=== PATIENT | female | born 1970 | race Caucasian/White ===

== ENCOUNTER 2017-11-26 13:43 | Inpatient (IN) | payer SELFPAY ==
[2017-11-26] VITALS (8 sets, daily range): BP systolic 145–182; BP diastolic 82–114; PULSE 62–80; RESP 16–21; TEMP 97.4–98.9; O2SAT 93–97
[~2017-11-26] VITALS: Ht 154.9 cm; Wt 91.2 kg
--- NOTE | 2017-11-26 14:21 | PD ---
HPI Chief Complaint: Respiratory Symptoms Time Seen by Provider: 14:06 Travel History International Travel<30 days: No Contact w/Intl Traveler<30days: No Traveled to known affect area: No History of Present Illness HPI The patient is a 47-year-old female who presents to the emergency department for bilateral lower extremity edema of 2 weeks' duration. The patient states she's had swelling of both lower extremities over the last 2 weeks. She now complains of increasing shortness of breath is worse with exertion, also complains of mild low back pain. The patient denies any recent travel, hospitalizations, surgeries, or previous history of pulmonary embolism/ DVT. Patient denies any history congestive heart failure or COPD. The patient does have a history tobacco use, last use a cigarette one hour prior to arrival. She also admits to drinking approximately 3 beers per day. She denies any known history of liver problems secondary to alcohol use. The patient denies any chest pain, nausea, vomiting, abdominal pain, or abdominal distention. The patient does not have a local primary physician. Symptoms are moderate without any alleviating or exacerbating factors. [facility] Past Medical History Medical History: Denies Significant Hx Diminished Hearing: No Tetanus Vaccination: Unknown Influenza Vaccination: No ?: Not LMP: 11/12/17 Past Surgical History Surgical History: No Previous Surgery Social History Alcohol Use: Yes (few times a week) Tobacco Use: Yes (1 ppd) Substance Use: Yes (marjuania) Allergies-Medications (Allergen,Severity, Reaction): Coded Allergies: No Known Allergies (Verified Allergy, Unknown, 11/26/17) Reported Meds & Prescriptions Reported Meds & Active Scripts Active No Active Prescriptions or Reported Medications Review of Systems Except as stated in HPI: all other systems reviewed are Neg General / Constitutional: No: Fever Cardiovascular: Positive: Dyspnea on exertion, No: Chest Pain or Discomfort Respiratory: Positive: Shortness of Breath, No: Cough, Wheezing Genitourinary: No: Decreased Urinary Output Musculoskeletal: Positive: Edema, Pain Physical Exam Narrative GENERAL: Awake, alert, 47-year-old female who appears her stated age and is in no acute respiratory distress. SKIN: Focused skin assessment warm/dry. HEAD: Atraumatic. Normocephalic. EYES: Pupils equal and round. No scleral icterus. No injection or drainage. ENT: No nasal bleeding or discharge. Mucous membranes pink and moist. NECK: Trachea midline. No JVD. CARDIOVASCULAR: Regular rate and rhythm. No murmur appreciated. RESPIRATORY: No accessory muscle use. Slightly diminished breath sounds in the bases. GASTROINTESTINAL: Abdomen soft, obese with reducible umbilical hernia. MUSCULOSKELETAL: No obvious deformities. No clubbing. No cyanosis. Bilateral lower extremity pitting edema from the knees inferiorly. Some ecchymosis noted over the proximal first, second, third, fourth digit of the left foot. Tenderness noted over both lower extremity edematous legs. NEUROLOGICAL: Awake and alert. No obvious cranial nerve deficits. Motor grossly within normal limits. Normal speech. PSYCHIATRIC: Appropriate mood and affect; insight and judgment normal. Data Data Last Documented VS Vital Signs Date Time Temp Pulse Resp B/P (MAP) Pulse Ox O2 Delivery O2 Flow Rate FiO2 11/26/17 14:43 77 20 172/98 (122) 93 Room Air 11/26/17 13:48 98.9 Orders Orders Complete Blood Count With Diff (11/26/17 14:17) Comprehensive Metabolic Panel (11/26/17 14:17) B-Type Natriuretic Peptide (11/26/17 14:17) Magnesium (Mg) (11/26/17 14:17) Ckmb (Isoenzyme) Profile (11/26/17 14:17) Troponin I (11/26/17 14:17) Iv Access Insert/Monitor (11/26/17 14:17) Electrocardiogram (11/26/17 14:17) Ecg Monitoring (11/26/17 14:17) Oximetry (11/26/17 14:17) Oxygen Administration (11/26/17 14:17) Chest, Single Ap (11/26/17 14:17) Sodium Chloride 0.9% Flush (Ns Flush) (11/26/17 14:30) Furosemide Inj (Lasix Inj) (11/26/17 14:30) Foot, Limited (2vws) (11/26/17 ) CKMB (11/26/17 14:14) CKMB% (11/26/17 14:14) Aspirin Chew (Aspirin Chew) (11/26/17 15:15) Consult Cardiology (11/26/17 ) Admit Order (Ed Use Only) (11/26/17 15:47) Labs Laboratory Tests Test 11/26/17 14:14 White Blood Count 16.1 TH/MM3 Red Blood Count 4.03 MIL/MM3 Hemoglobin 13.2 GM/DL Hematocrit 39.0 % Mean Corpuscular Volume 96.8 FL Mean Corpuscular Hemoglobin 32.9 PG Mean Corpuscular Hemoglobin Concent 34.0 % Red Cell Distribution Width 14.4 % Platelet Count 289 TH/MM3 Mean Platelet Volume 8.4 FL Neutrophils (%) (Auto) 77.4 % Lymphocytes (%) (Auto) 14.6 % Monocytes (%) (Auto) 5.2 % Eosinophils (%) (Auto) 2.4 % Basophils (%) (Auto) 0.4 % Neutrophils # (Auto) 12.4 TH/MM3 Lymphocytes # (Auto) 2.4 TH/MM3 Monocytes # (Auto) 0.8 TH/MM3 Eosinophils # (Auto) 0.4 TH/MM3 Basophils # (Auto) 0.1 TH/MM3 CBC Comment DIFF FINAL Differential Comment Blood Urea Nitrogen 16 MG/DL Creatinine 0.87 MG/DL Random Glucose 108 MG/DL Total Protein 7.5 GM/DL Albumin 3.7 GM/DL Calcium Level 8.6 MG/DL Magnesium Level 2.3 MG/DL Alkaline Phosphatase 99 U/L Aspartate Amino Transf (AST/SGOT) 22 U/L Alanine Aminotransferase (ALT/SGPT) 20 U/L Total Bilirubin 0.4 MG/DL Sodium Level 139 MEQ/L Potassium Level 4.0 MEQ/L Chloride Level 103 MEQ/L Carbon Dioxide Level 28.6 MEQ/L Anion Gap 7 MEQ/L Estimat Glomerular Filtration Rate 69 ML/MIN Total Creatine Kinase 140 U/L Creatine Kinase MB 2.2 NG/ML Troponin I 0.11 NG/ML B-Type Natriuretic Peptide 9 PG/ML MDM Medical Decision Making Medical Screen Exam Complete: Yes Emergency Medical Condition: Yes Medical Record Reviewed: Yes Interpretation(s) EKG reveals normal sinus rhythm with a rate of 73. Inverted T waves noted in lead V4, V5, V6, 1, aVL, and lead 2. Laboratory Tests Test 11/26/17 14:14 White Blood Count 16.1 TH/MM3 Red Blood Count 4.03 MIL/MM3 Hemoglobin 13.2 GM/DL Hematocrit 39.0 % Mean Corpuscular Volume 96.8 FL Mean Corpuscular Hemoglobin 32.9 PG Mean Corpuscular Hemoglobin Concent 34.0 % Red Cell Distribution Width 14.4 % Platelet Count 289 TH/MM3 Mean Platelet Volume 8.4 FL Neutrophils (%) (Auto) 77.4 % Lymphocytes (%) (Auto) 14.6 % Monocytes (%) (Auto) 5.2 % Eosinophils (%) (Auto) 2.4 % Basophils (%) (Auto) 0.4 % Neutrophils # (Auto) 12.4 TH/MM3 Lymphocytes # (Auto) 2.4 TH/MM3 Monocytes # (Auto) 0.8 TH/MM3 Eosinophils # (Auto) 0.4 TH/MM3 Basophils # (Auto) 0.1 TH/MM3 CBC Comment DIFF FINAL Differential Comment Blood Urea Nitrogen 16 MG/DL Creatinine 0.87 MG/DL Random Glucose 108 MG/DL Total Protein 7.5 GM/DL Albumin 3.7 GM/DL Calcium Level 8.6 MG/DL Magnesium Level 2.3 MG/DL Alkaline Phosphatase 99 U/L Aspartate Amino Transf (AST/SGOT) 22 U/L Alanine Aminotransferase (ALT/SGPT) 20 U/L Total Bilirubin 0.4 MG/DL Sodium Level 139 MEQ/L Potassium Level 4.0 MEQ/L Chloride Level 103 MEQ/L Carbon Dioxide Level 28.6 MEQ/L Anion Gap 7 MEQ/L Estimat Glomerular Filtration Rate 69 ML/MIN Total Creatine Kinase 140 U/L Creatine Kinase MB 2.2 NG/ML Troponin I 0.11 NG/ML Last Impressions Chest X-Ray 11/26/17 1417 Signed Impressions: Service Date/Time: Sunday, November 26, 2017 15:02 - CONCLUSION: Mild linear bibasilar atelectasis. Nancy Pickens MD Foot X-Ray 11/26/17 0000 Signed Impressions: Service Date/Time: Sunday, November 26, 2017 15:04 - CONCLUSION: Soft tissue swelling and no definite fracture for technique. Nancy Pickens MD Differential Diagnosis Differential diagnosis includes congestive heart failure, volume overload, pulmonary edema, alcoholic liver cirrhosis, hyponatremia, hypoalbuminemia, deconditioning, pulmonary embolism, ACS, pneumonia, pleural effusion. Narrative Course IV was established, labs are drawn and sent, and the patient was placed on cardiac telemetry monitoring and continuous pulse oximetry monitoring. EKG was ordered and interpreted. Chest x-ray was obtained. The patient was administered Lasix 40 mg intravenously. The patient was also administered aspirin 162 mg orally. The patient's troponin is elevated at 0.11, creatinine is normal. EKG does reveal inverted T waves in the lateral and inferior leads, may be secondary to chronic hypertension versus ischemic changes. The patient does have exertional dyspnea, may be anginal equivalent versus cardiomyopathy. BNP was 9. Patient will require admission, probable echocardiogram, and possibly consultation with cardiology to evaluate for possible cardiac catheterization versus stress test. I did have a discussion with the patient, who agrees and understands the plan of care. I also placed a call to the on-call kennel aide in regards to patient's elevated troponin with EKG changes and negative BNP. I discussed the patient with Dr. Gordillo at 3:34 PM who states the patient should be transferred to [facility] as she will need to see cardiology for further evaluation and treatment. A call was placed to [facility], patient will be transferred not emergently to [facility] cardiac telemetry. Physician Communication Physician Communication The on-call medical service was paged for admission. The on-call kennel aide for the emergency department was paged. I discussed the patient with Dr. Bautista who agrees with admission. Diagnosis Primary Impression: NSTEMI (non-ST elevated myocardial infarction) Additional Impressions: Dyspnea Qualified Codes: R06.02 - Shortness of breath Edema Qualified Codes: R60.9 - Edema, unspecified Admitting Information Admitting Physician Requests: Admit Scripts No Active Prescriptions or Reported Meds Condition: Stable Natalio Reagan MD Nov 26, 2017 14:21
[2017-11-26 14:27] LABS: AUTOMATED NEUTROPHIL # 12.4 TH/MM3 (1.8-7.7); BASOPHIL # 0.1 TH/MM3 (0-0.2); BASOPHIL % 0.4 % (0.0-2.0); EOSINOPHIL # 0.4 TH/MM3 (0-0.4); EOSINOPHIL % 2.4 % (0.0-4.0); HEMOGLOBIN 13.2 GM/DL (11.6-15.3); LYMPH % 14.6 % (9.0-44.0); LYMPHOCYTE # 2.4 TH/MM3 (1.0-4.8); MEAN CELL VOLUME 96.8 FL (80.0-100.0); MEAN CORPUSCULAR HEMOGLOBIN 32.9 PG (27.0-34.0); MEAN PLATELET VOLUME 8.4 FL (7.0-11.0); MONO % 5.2 % (0.0-8.0); MONOCYTE # 0.8 TH/MM3 (0-0.9); NEUT % 77.4 % (16.0-70.0); PLATELET COUNT 289 TH/MM3 (150-450); RED BLOOD COUNT 4.03 MIL/MM3 (4.00-5.30); RED CELL DISTRIBUTION WIDTH 14.4 % (11.6-17.2); WHITE BLOOD COUNT 16.1 TH/MM3 (4.0-11.0)
[2017-11-26] MEDS ORDERED: SODIUM CHLORIDE 0.9% FLUSH 10 ML FLUSH IVF PRN (14:30)
[2017-11-26] MEDS ORDERED: FUROSEMIDE 40 MG/4 ML VIAL IVP ONE (14:30)
[2017-11-26 14:45] LABS: CHLORIDE 103 MEQ/L (98-107); SODIUM (NA) 139 MEQ/L (136-145)
[2017-11-26 14:49] LABS: ALBUMIN 3.7 GM/DL (3.4-5.0); BICARBONATE 28.6 MEQ/L (21.0-32.0); BLOOD UREA NITROGEN 16 MG/DL (7-18); CALCIUM 8.6 MG/DL (8.5-10.1); GLUCOSE,RANDOM 108 MG/DL (74-106); MAGNESIUM 2.3 MG/DL (1.5-2.5)
[2017-11-26 14:52] LABS: ALT (GPT) 20 U/L (10-53); AST (GOT) 22 U/L (15-37); CREATININE 0.87 MG/DL (0.50-1.00); GLOMERULAR FILTRATION RATE 69 ML/MIN (>89)
[2017-11-26 14:54] LABS: TOTAL BILIRUBIN ADULT 0.4 MG/DL (0.2-1.0); TOTAL PROTEIN 7.5 GM/DL (6.4-8.2)
[2017-11-26 14:55] LABS: ALKALINE PHOSPHATASE 99 U/L (45-117)
[2017-11-26 14:58] LABS: TROPONIN I 0.11 NG/ML (0.02-0.05)
[2017-11-26] MEDS ORDERED: ASPIRIN 81 MG CHEW TAB CHEW ONE (15:15)
--- NOTE | 2017-11-26 15:29 | RADRPT ---
EXAM DATE/TIME: 11/26/2017 15:02 [facility] COMPARISON: No previous studies available for comparison. INDICATIONS : Short of breath, upper and lower extremity swelling MEDICAL HISTORY : None. SURGICAL HISTORY : None. ENCOUNTER: Initial ACUITY: 1 day PAIN SCORE: 0/10 LOCATION: Bilateral chest FINDINGS: The lungs are clear without infiltrate, nodule, or mass except for mild linear bibasilar atelectasis. There is no appreciable pleural effusion for technique. Heart and mediastinum are unremarkable. CONCLUSION: Mild linear bibasilar atelectasis. Nancy Pickens MD on November 26, 2017 at 15:26 Board Certified Radiologist. This report was verified electronically.
--- NOTE | 2017-11-26 15:30 | RADRPT ---
EXAM DATE/TIME: 11/26/2017 15:04 [facility] COMPARISON: No previous studies available for comparison. INDICATIONS : Fell several days ago, has left foot swelling and pain MEDICAL HISTORY : None. SURGICAL HISTORY : None. ENCOUNTER: Initial ACUITY: 4 - 6 days PAIN SCORE: 6/10 LOCATION: Left foot FINDINGS: No definite fractures, or dislocations are identified. No definite lytic or sclerotic lesion is seen . Soft tissue swelling is identified. CONCLUSION: Soft tissue swelling and no definite fracture for mayuri. KAilin Pickens MD on November 26, 2017 at 15:27 Board Certified Radiologist. This report was verified electronically.
[2017-11-26] MEDS ORDERED: ONDANSETRON HCL 4 MG/2 ML VIAL IVP PRN (16:45)
[2017-11-26] MEDS ORDERED: MAGNESIUM HYDROXIDE SUSP 30 ML CUP PO PRN (16:45)
[2017-11-26] MEDS ORDERED: LACTULOSE SYRUP 20 GM/30 ML CUP PO PRN (16:45)
[2017-11-26] MEDS ORDERED: BISACODYL 10 MG SUPP RECTAL PRN (16:45)
[2017-11-26] MEDS ORDERED: ACETAMINOPHEN 325 MG TAB PO PRN (16:45)
[2017-11-26] MEDS ORDERED: NALOXONE HCL 0.4 MG/ML AMP IV PUSH PRN (16:45)
[2017-11-26] MEDS ORDERED: TEMAZEPAM 15 MG CAP PO PRN (16:45)
[2017-11-26] MEDS ORDERED: SODIUM CHLORIDE 0.9% FLUSH 10 ML FLUSH IV FLUSH PRN (16:45)
[2017-11-26] MEDS ORDERED: SENNOSIDES 8.6 MG TAB PO PRN (16:45)
--- NOTE | 2017-11-26 19:29 | EKG ---
Date Performed: 11/26/2017 Time Performed: 19:03:51 PTAGE: 47 years EKG: Sinus rhythm WITH SINUS ARRHYTHMIA Nonspecific ST and T wave abnormalities ABNORMAL ECG No significant change fro m prior electrocardiogram. PREVIOUS TRACING : 11/26/2017 14.23 DOCTOR: Aayush Landaverde Interpretating Date/Time 11/26/2017 19:28:07
[2017-11-26] MEDS ORDERED: ACETAMINOPHEN/HYDROcodone 325 MG/5 MG TAB PO PRN (19:45)
[2017-11-26] MEDS: LORazepam 1 MG TAB PO PRN (21:48)
[2017-11-26] MEDS: DOCUSATE SODIUM 50 MG/SENNA 8.6 MG TAB PO SCH (21:48)
[2017-11-26] MEDS: SODIUM CHLORIDE 0.9% FLUSH 10 ML FLUSH IV FLUSH SCH (21:49)
[2017-11-26] MEDS: METOPROLOL TARTRATE 25 MG TAB PO SCH (21:49)
--- NOTE | 2017-11-26 22:09 | EKG ---
Date Performed: 11/26/2017 Time Performed: 14:23:45 PTAGE: 47 years EKG: Baseline artifact present Sinus rhythm Nonspecific T wave changes ABNORMAL ECG NO PREVIOUS TRACING DOCTOR: Aayush Landaverde Interpretating Date/Time 11/26/2017 22:07:16
--- NOTE | 2017-11-26 22:31 | EKG ---
Date Performed: 11/26/2017 Time Performed: 22:04:50 PTAGE: 47 years EKG: Baseline artifact present Sinus rhythm Nonspecific T wave changes ABNORMAL ECG No significant change from prior electrocardiogram. PREVIOUS TRACING : 11/26/2017 19.03 DOCTOR: Aayush Landaverde Interpretating Date/Time 11/26/2017 22:29:38
[2017-11-27] VITALS (10 sets, daily range): BP systolic 134–166; BP diastolic 88–116; PULSE 42–90; RESP 18–22; TEMP 98.1–99; O2SAT 93–97
[2017-11-27 06:15] LABS: AUTOMATED NEUTROPHIL # 17.7 TH/MM3 (1.8-7.7); BASOPHIL # 0.1 TH/MM3 (0-0.2); BASOPHIL % 0.4 % (0.0-2.0); EOSINOPHIL # 0.4 TH/MM3 (0-0.4); HEMATOCRIT 42.9 % (35.0-46.0); HEMOGLOBIN 14.7 GM/DL (11.6-15.3); LYMPH % 10.7 % (9.0-44.0); LYMPHOCYTE # 2.3 TH/MM3 (1.0-4.8); MEAN CORPUSCULAR HEMOGLOBIN 33.8 PG (27.0-34.0); MEAN CORPUSCULAR HGB CONC 34.1 % (32.0-36.0); MEAN PLATELET VOLUME 8.9 FL (7.0-11.0); MONO % 4.9 % (0.0-8.0); MONOCYTE # 1.1 TH/MM3 (0-0.9); PLATELET COUNT 326 TH/MM3 (150-450); RED BLOOD COUNT 4.34 MIL/MM3 (4.00-5.30); RED CELL DISTRIBUTION WIDTH 15.4 % (11.6-17.2); WHITE BLOOD COUNT 21.6 TH/MM3 (4.0-11.0)
[2017-11-27 06:39] LABS: BICARBONATE 27.9 MEQ/L (21.0-32.0); CALCIUM 9.1 MG/DL (8.5-10.1); CREATININE 0.93 MG/DL (0.50-1.00)
[2017-11-27 06:44] LABS: TROPONIN I 0.11 NG/ML (0.02-0.05)
[2017-11-27] MEDS: SODIUM CHLORIDE 0.9% FLUSH 10 ML FLUSH IV FLUSH SCH ×2 (09:04→21:59)
[2017-11-27] MEDS: PRAVASTATIN SOD 40 MG TAB PO SCH (09:06)
[2017-11-27] MEDS: ASPIRIN EC 81 MG TABEC PO SCH (09:06)
[2017-11-27] MEDS: METOPROLOL TARTRATE 25 MG TAB PO SCH ×2 (09:07→21:59)
[2017-11-27] MEDS: DOCUSATE SODIUM 50 MG/SENNA 8.6 MG TAB PO SCH ×2 (09:07→21:00)
[2017-11-27] MEDS: amLODIPine BESYLATE 5 MG TAB PO SCH (11:52)
--- NOTE | 2017-11-27 12:06 | MB ---
cc: SATHISH VERDE DO DATE OF CONSULTATION 11/27/2017 REASON FOR CONSULTATION Shortness of breath with exertion. HISTORY OF PRESENT ILLNESS Ciera Reeder is a pleasant 47-year-old female who presented to [facility] emergency room [place] due to bilateral lower extremity swelling as well as shortness of breath. She states that this was increasing over the past few weeks and has gotten significantly worse over the past week. She states that she also has had dyspnea on exertion which has been progressive over the past few months. At this time, she is unable to walk more than 10 minutes without getting short of breath. She has no complaints of orthopnea or paroxysmal nocturnal dyspnea. She does a have a weird feeling in her chest occasionally which lasts a few minutes and goes away. It does not seem to be related to activity. In seeing her, she is currently without chest pain or shortness of breath and hemodynamically stable. PAST MEDICAL HISTORY Denies significant history but has not seen a doctor in a number of years. She states that she previously had: 1. Hyperthyroidism but this was treated with radiation. 2. She most likely has longstanding hypertension based on her current blood pressures here as well as EKG changes. PAST SURGICAL HISTORY Denies ALLERGIES NO KNOWN DRUG ALLERGIES. MEDICATIONS Denies FAMILY HISTORY Denies premature coronary artery disease or sudden cardiac within the family. SOCIAL HISTORY The patient states that she will drink three beers a day a few days a week. She smokes one-pack per day of cigarettes. She also admits to smoking marijuana, but no other substance abuse. REVIEW OF SYSTEMS 14-systems were reviewed including osteopathic. Pertinent positives and negatives as above otherwise negative. PHYSICAL EXAMINATION VITAL SIGNS: Temperature 98.4, heart rate 68, blood pressure 164/98, respirations 20, pulse ox 93% on two liters. GENERAL: The patient appears well in no acute distress, alert awake and oriented x3. Extraocular muscles intact. Mucous membranes moist. NECK: Supple. No JVD at 45 degrees. No carotid bruits heard bilaterally. Carotid upstroke is brisk in nature. HEART: Regular rate and rhythm. Positive first and second heart sounds with no murmurs, gallops or rubs. LUNGS: Clear to auscultation bilaterally. No wheezes, rales or rhonchi. ABDOMEN: Soft, obese, nontender, nondistended. No organomegaly noted. EXTREMITIES: Show 1+ nonpitting edema bilaterally. No clubbing or cyanosis. Femoral and distal pulses intact bilaterally. NEUROLOGIC: No focal deficits. SKIN: Warm, dry and intact. OSTEOPATHIC: Mild lordosis. No kyphoscoliosis or paraspinal tender points. LABORATORY FINDINGS Hemoglobin 14.7, hematocrit 42.9, platelets 326. Potassium 3.4, BUN 16, creatinine 0.93, troponin 0.11. BNP 9. Electrocardiogram (November 26, 2017 at 2204) sinus rhythm, ST-T wave changes laterally possibly due to ischemia. IMPRESSION 1. Dyspnea on exertion. 2. Lower extremity edema. 3. Accelerated hypertensive/hypertensive urgency with blood pressures of 182/114 on arrival. 4. Mildly elevated troponin. 5. History of hyperthyroidism status post radiation therapy. 6. Tobacco abuse. RECOMMENDATIONS 1. Ms. Reeder presented with long-term dyspnea on exertion that has steadily got worse. She denies overall chest pain. I believe that her shortness of breath and overall edema is most likely due to longstanding hypertension. 2. We will attempt to control her blood pressure with Metoprolol and Norvasc, as well as attempt to diurese her with some Lasix. 3. We will check a 2-D echo to look at her overall left ventricular function, cardiac structure and possible valvulopathies. With her underlying hypertension, I would not be surprised to see LVH which would also go along with her EKG changes. 4. Because of the minimally elevated troponin, as well as her symptoms, although not classic for acute coronary syndrome, we will plan to check a Lexiscan stress test today and if positive, she will undergo cardiac catheterization. I discussed with her extensively and she states there is no way she can be does not want to test beforehand. 5. I spoke to her for greater than three minutes about tobacco cessation. 6. She has a BNP of 9 and obviously does not appear to be in heart failure as she has not no orthopnea or paroxysmal nocturnal dyspnea. Lower extremity edema is somewhat nonpitting and may actually be partially due to lymphedema. Overall would suggest to her to lose weight and increase her activity if stress testing and is negative. Thank you for allowing me to see Ciera Reeder. If there are any questions, please do not hesitate to call. Sathish BRANCHP/DJL /11:11 AM /11:42 AM
[2017-11-27] MEDS ORDERED: REGADENOSON INJ 0.4 MG/5 ML SYR ONE (13:30)
--- NOTE | 2017-11-27 14:34 | RADRPT ---
EXAM DATE/TIME: 11/27/2017 13:16 [facility] COMPARISON: No previous studies available for comparison. INDICATIONS : Dyspnea. Abnormal EKG. DOSE: 25.4 mCi Tc99m Myoview at stress. 8.5 mCi Tc99m Myoview at rest. 0.4 mg Lexiscan STRESS SYMPTOMS: Dyspnea. EJECTION FRACTION: 58% MEDICAL HISTORY : Hypertension. SURGICAL HISTORY : None. ENCOUNTER: Initial ACUITY: 1 day PAIN SCALE: 0/10 LOCATION: Chest. TECHNIQUE: The patient underwent pharmacologic stress with infusion of prescribed dose. Continuous ECG tracing was monitored during stress. Gated SPECT imaging was performed after stress and conventional SPECT i maging was performed at rest. The examination was performed on a SPECT/CT scanner, both attenuation and non-corrected datasets were reviewed. FINDINGS: DISTRIBUTION: The maximum perfused segment at stress is in the septal wall. PERFUSION STUDY: There is decreased activity seen on the stress images at the anterior and lateral septal regions. The re is decreased activity basilar inferior wall. The decreased activity is in the order of 20-30%. GATED STUDY: There is intact wall motion and thickening without hypokinetic or dyskinetic segments. CONCLUSION: Possible areas of ischemia at the apical anterior and lateral rosa and at the basilar inferior wall. RISK CATEGORY: Low (<1% Annual Mortality Rate) Alexy Barnes MD on November 27, 2017 at 14:27 Board Certified Radiologist. This report was verified electronically.
[2017-11-27] MEDS ORDERED: POTASSIUM CHLORIDE 10 MEQ CONTROLLED RELEASE TAB PO ONE (15:30)
--- NOTE | 2017-11-27 15:54 | ECHRPT ---
Indication: CARDIOMYOPATHY CONCLUSIONS Normal left ventricular size. Mild concentric left ventricular hypertrophy. The left ventricular systolic function is normal with an estimated ejection fraction in the range of 55-60%. Trace mitral valve regurgitation. Trace aortic valve regurgitation. There is trace tricuspid valve regurgitation. BP: / HR: Rhythm: Sinus MEASUREMENTS (Male / Female) Normal Values Technical Quality:Fair 2D ECHO LV Diastolic Diameter PLAX 4.7 cm 4.2 - 5.9 / 3.9 - 5.3 cm LV Systolic Diameter PLAX 3.3 cm IVS Diastolic Thickness 1.2 cm 0.6 - 1.0 / 0.6 - 0.9 cm LVPW Diastolic Thickness 1.2 cm 0.6 - 1.0 / 0.6 - 0.9 cm LV Relative Wall Thickness 0.5 RV Internal Dim ED PLAX 2.4 cm LVOT Diameter 1.9 cm Aortic Root Diameter 2.8 cm LA Systolic Diameter LX 2.6 cm 3.0 - 4.0 / 2.7 - 3.8 cm M-MODE AV Cusp Separation MM 2.2 cm DOPPLER AV Peak Velocity 119.0 cm/s AV Peak Gradient 5.7 mmHg AV Mean Gradient 3.0 mmHg AV Velocity Time Integral 20.6 cm LVOT Peak Velocity 92.5 cm/s LVOT Peak Gradient 3.4 mmHg LVOT Velocity Time Integral 16.8 cm AV Area Cont Eq vti 2.3 cm AV Area Cont Eq pk 2.2 cm Mitral E Point Velocity 58.7 cm/s Mitral A Point Velocity 49.4 cm/s Mitral E to A Ratio 1.2 LV E' Lateral Velocity 7.2 cm/s Mitral E to LV E' Lateral Ratio 8.1 LV E' Septal Velocity 4.6 cm/s Mitral E to LV E' Septal Ratio 12.8 PV Peak Velocity 53.4 cm/s PV Peak Gradient 1.1 mmHg FINDINGS LEFT VENTRICLE Normal left ventricular size. Mild concentric left ventricular hypertrophy. The left ventricular systolic function is normal with an estimated ejection fraction in the range of 55-60%. RIGHT VENTRICLE Normal right ventricular size and systolic function. LEFT ATRIUM The left atrial size is normal. RIGHT ATRIUM The right atrial size is normal. ATRIAL SEPTUM Normal atrial septal thickness without atrial level shunting by limited color doppler interrogation. AORTA The aortic root and proximal ascending aorta are normal in size on limited imaging. MITRAL VALVE Trace mitral valve regurgitation. AORTIC VALVE Trace aortic valve regurgitation. TRICUSPID VALVE There is trace tricuspid valve regurgitation. PULMONARY VALVE No pulmonary valve regurgitation or stenosis. VESSELS The inferior vena cava is normal in size. PERICARDIUM No pericardial effusion. Robert Engel MD, FACC (Electronically Signed) Final Date:27 November 2017 15:53
--- NOTE | 2017-11-27 16:02 | HHI.HP ---
HPI Service [facility] Hospitalists Primary Care Physician No Primary Care Physician Admission Diagnosis NSTEMI, exertional dyspnea, lower extremity edema Diagnoses: Chief Complaint: Shortness of breath, bilateral extremity swelling. Travel History International Travel<30 Days: No Contact w/Intl Traveler <30 Da: No Traveled to Known Affected Are: No History of Present Illness This is a 47-year-old female with past medical history of hyperthyroidism status post radiation treatment who presented to [facility] emergency department at [place] complaining of bilateral lower extremity swelling and progressive shortness of breath. The patient noticed the swelling over the past few weeks which has current significant worst over the past week. Patient also complains of dizziness exertion which have been present over the past few months. The patient denies orthopnea or paroxysmal nocturnal dyspnea. Occasionally she states has a with sensation in her chest which last a few minutes and then goes away. It does not seem to be related to exertion. The patient otherwise denies any chest pain, fevers, chills, dysuria, abdominal pain , nausea, vomiting, diaphoresis. Patient however does state that she has not been taking Levothyroxine which she stopped taking a long time ago but she could not afford the medication. When asked patient admitted to weight gain, constipation, brittle hair. Review of Systems As per history of present illness, other systems reviewed by me and negative. Past Family Social History Past Medical History 1. Hyperthyroidism treated with radiation. Past Surgical History Denies Reported Medications Reported Meds & Active Scripts Active No Active Prescriptions or Reported Medications Allergies: Coded Allergies: No Known Allergies (Verified Allergy, Unknown, 11/26/17) Active Ordered Medications Current Medications Medications (Trade) Dose Ordered Sig/Araseli Route Start Time Stop Time Status Last Admin (NS Flush) 2 ml UNSCH PRN IV FLUSH 11/26/17 16:45 (NS Flush) 2 ml BID IV FLUSH 11/26/17 21:00 11/27/17 09:04 (Tylenol) 650 mg Q4H PRN PO 11/26/17 16:45 (Zofran Inj) 4 mg Q6H PRN IVP 11/26/17 16:45 (Restoril) 15 mg HS PRN PO 11/26/17 16:45 (Narcan Inj) 0.4 mg UNSCH PRN IV PUSH 11/26/17 16:45 (Laurence-Colace) 1 tab BID PO 11/26/17 21:00 11/26/17 21:48 (Milk Of Magnesia Liq) 30 ml Q12H PRN PO 11/26/17 16:45 (Senokot) 17.2 mg Q12H PRN PO 11/26/17 16:45 (Dulcolax Supp) 10 mg DAILY PRN RECTAL 11/26/17 16:45 (Lactulose Liq) 30 ml DAILY PRN PO 11/26/17 16:45 (Ativan) 1 mg Q8H PRN PO 11/26/17 19:45 11/26/17 21:48 (Marion 5-325 Mg) 1 tab Q4H PRN PO 11/26/17 19:45 (Morphine Inj) 2 mg Q4H PRN IV PUSH 11/26/17 19:45 (Ecotrin Ec) 81 mg DAILY PO 11/27/17 09:00 11/27/17 09:06 (Pravachol) 40 mg DAILY PO 11/27/17 09:00 11/27/17 09:06 (Lopressor) 25 mg Q12HR PO 11/26/17 21:00 11/27/17 09:07 (Norvasc) 5 mg DAILY PO 11/27/17 12:00 11/27/17 11:52 Family History Denies family history of premature CAD or sudden cardiac . Social History The patient smokes one pack per day. Patient also admits to smoking marijuana denies any other substance abuse. The patient drinks about 3 beers a day a few days a week. Physical Exam Vital Signs Vital Signs Date Time Temp Pulse Resp B/P (MAP) Pulse Ox O2 Delivery O2 Flow Rate FiO2 11/27/17 12:00 99.0 77 18 134/99 (111) 93 11/27/17 10:15 94 Nasal Cannula 2.00 11/27/17 08:00 98.1 90 20 162/107 (125) 93 11/27/17 04:00 98.4 68 21 164/98 (120) 93 11/27/17 03:55 70 11/27/17 01:43 42 11/27/17 00:00 98.1 74 20 166/98 (120) 97 11/26/17 23:59 62 11/26/17 20:00 80 11/26/17 20:00 97.7 75 21 151/82 (105) 94 11/26/17 17:53 97.4 78 18 166/100 (122) 93 11/26/17 16:59 98.1 72 22 145/90 (108) 100 Nasal Cannula 2.00 11/26/17 16:22 95 Room Air 11/26/17 16:22 74 18 145/90 (108) 95 Room Air Physical Exam GENERAL: This is a well-nourished, well-developed patient, in no apparent distress. SKIN: No rashes, ecchymoses or lesions. Cool and dry. HEAD: Atraumatic. Normocephalic. No temporal or scalp tenderness. EYES: Pupils equal round and reactive. Extraocular motions intact. No scleral icterus. No injection or drainage. ENT: Nose without bleeding, purulent drainage or septal hematoma. Throat without erythema, tonsillar hypertrophy or exudate. Uvula midline. Airway patent. NECK: Trachea midline. No JVD or lymphadenopathy. Supple, nontender, no meningeal signs. CARDIOVASCULAR: Regular rate and rhythm without murmurs, gallops, or rubs. RESPIRATORY: Clear to auscultation. Breath sounds equal bilaterally. No wheezes , rales, or rhonchi. GASTROINTESTINAL: Abdomen soft, non-tender, nondistended. No hepato-splenomegaly , or palpable masses. No guarding. MUSCULOSKELETAL: Extremities without clubbing, cyanosis, or edema. No joint tenderness, effusion, or edema noted. No calf tenderness. Negative Homans sign bilaterally. NEUROLOGICAL: Awake and alert. Cranial nerves II through XII intact. Motor and sensory grossly within normal limits. Five out of 5 muscle strength in all muscle groups. Normal speech. Laboratory Laboratory Tests Test 11/26/17 22:36 11/27/17 05:05 Troponin I 0.10 0.11 White Blood Count 21.6 Red Blood Count 4.34 Hemoglobin 14.7 Hematocrit 42.9 Mean Corpuscular Volume 99.0 Mean Corpuscular Hemoglobin 33.8 Mean Corpuscular Hemoglobin Concent 34.1 Red Cell Distribution Width 15.4 Platelet Count 326 Mean Platelet Volume 8.9 Neutrophils (%) (Auto) 82.0 Lymphocytes (%) (Auto) 10.7 Monocytes (%) (Auto) 4.9 Eosinophils (%) (Auto) 2.0 Basophils (%) (Auto) 0.4 Neutrophils # (Auto) 17.7 Lymphocytes # (Auto) 2.3 Monocytes # (Auto) 1.1 Eosinophils # (Auto) 0.4 Basophils # (Auto) 0.1 CBC Comment DIFF FINAL Differential Comment Blood Urea Nitrogen 16 Creatinine 0.93 Random Glucose 96 Calcium Level 9.1 Sodium Level 140 Potassium Level 3.4 Chloride Level 104 Carbon Dioxide Level 27.9 Anion Gap 8 Estimat Glomerular Filtration Rate 64 Result Diagram: 11/27/17 0505 11/27/17 0505 Imaging Last Impressions Myocardial Perfusion Scan Nuc Med 11/27/17 0000 Signed Impressions: Service Date/Time: Monday, November 27, 2017 13:16 - CONCLUSION: Possible areas of ischemia at the apical anterior and lateral rosa and at the basilar inferior wall. RISK CATEGORY: Low (<1%% Annual Mortality Rate) Alexy Barnes MD Chest X-Ray 11/26/17 1417 Signed Impressions: Service Date/Time: Sunday, November 26, 2017 15:02 - CONCLUSION: Mild linear bibasilar atelectasis. Nancy Pickens MD Foot X-Ray 11/26/17 0000 Signed Impressions: Service Date/Time: Sunday, November 26, 2017 15:04 - CONCLUSION: Soft tissue swelling and no definite fracture for technique. Nancy Pickens MD Cappreethii VTE Risk Assessment Caprini VTE Risk Assessment: Mod/High Risk (score >= 2) Caprini Risk Assessment Model Point Value = 1 Point Value = 2 Point Value = 3 Point Value = 5 Age 41-60 Minor surgery BMI > 25 kg/m2 Swollen legs Varicose veins or History of unexplained or recurrent spontaneous Oral contraceptives or hormone replacement Sepsis (< 1 month) Serious lung disease, including pneumonia (< 1 month) Abnormal pulmonary function Acute myocardial infarction Congestive heart failure (< 1 month) History of inflammatory bowel disease Medical patient at bed rest Age 61-74 Arthroscopic surgery Major open surgery (> 45 min) Laparoscopic surgery (> 45 min) Malignancy Confined to bed (> 72 hours) Immobilizing plaster cast Central venous access Age >= 75 History of VTE Family history of VTE Factor V Leiden Prothrombin [id number] Lupus anticoagulant Anticardiolipin antibodies Elevated serum homocysteine Heparin-induced thrombocytopenia Other congenital or acquired thrombophilia Stroke (< 1 month) Elective arthroplasty Hip, pelvis, or leg fracture Acute spinal cord injury (< 1 month) Prophylaxis Regimen Total Risk Factor Score Risk Level Prophylaxis Regimen 0-1 Low Early ambulation 2 Moderate Order ONE of the following: *Sequential Compression Device (SCD) *Heparin 5000 units SQ BID 3-4 Higher Order ONE of the following medications: *Heparin 5000 units SQ TID *Enoxaparin/Lovenox 40 mg SQ daily (WT < 150 kg, CrCl > 30 mL/min) *Enoxaparin/Lovenox 30 mg SQ daily (WT < 150 kg, CrCl > 10-29 mL/min) *Enoxaparin/Lovenox 30 mg SQ BID (WT < 150 kg, CrCl > 30 mL/min) AND/OR *Sequential Compression Device (SCD) 5 or more Highest Order ONE of the following medications: *Heparin 5000 units SQ TID (Preferred with Epidurals) *Enoxaparin/Lovenox 40 mg SQ daily (WT < 150 kg, CrCl > 30 mL/min) *Enoxaparin/Lovenox 30 mg SQ daily (WT < 150 kg, CrCl > 10-29 mL/min) *Enoxaparin/Lovenox 30 mg SQ BID (WT < 150 kg, CrCl > 30 mL/min) AND *Sequential Compression Device (SCD) Assessment and Plan Problem List: (1) Dyspnea ICD Code: R06.00 - Dyspnea, unspecified Status: Acute Plan: Likely related to malignant hypertension. Check 2-D echo. Cardiology consulted. (2) NSTEMI (non-ST elevated myocardial infarction) ICD Code: I21.4 - Non-ST elevation (NSTEMI) myocardial infarction Status: Acute Plan: EKG reviewed by me showed sinus rhythm with a ventricular rate of [address] segment elevations or depressions. There were nonspecific T-wave changes in anterolateral leads. Cardiology following. Nuclear stress test ordered and it shows possible areas of ischemia at the apical anterior and lateral rosa and at the basilar inferior wall. Discussed the case with Dr. Gordillo from cardiology who recommends nothing by mouth at midnight for cardiac catheter tomorrow. (3) Bilateral lower extremity edema ICD Code: R60.0 - Localized edema Plan: BNP is 9. Congestive heart failure unlikely. Check 2-D echocardiogram. Possibly secondary to long-standing hypertension. I will order bilateral venous Dopplers to rule out DVT. Suspect Mixedema since patient has been noncompliant with thyroid replacement therapy. (4) Leukocytosis ICD Code: D72.829 - Elevated white blood cell count, unspecified Plan: CXR reviewed by me showed mild linear basilar atelectasis. Check urinalysis. (5) Malignant essential hypertension ICD Code: I10 - Essential (primary) hypertension Status: Acute Plan: Cardiology consulted. Start the patient on amlodipine 5 mg by mouth daily, metoprolol tartrate 25 maintenance by mouth twice a day. Blood pressure is somewhat improved. Continue to monitor vital signs. (6) Hypokalemia ICD Code: E87.6 - Hypokalemia Status: Acute Plan: Replace and monitor BMP. (7) H/O hyperthyroidism ICD Code: Z86.39 - Personal history of other endocrine, nutritional and metabolic disease Plan: The patient states she underwent radioactive iodine ablation therapy. However she is currently not on any levothyroxine replacement. When asked she states that she should be on levothyroxine however she stopped taking it because she could not afford it. (8) Tobacco abuse ICD Code: Z72.0 - Tobacco use Status: Acute Plan: Consult against him on smoking cessation. Assessment and Plan DVT prophylaxis: SCDs, add heparin subcutaneous. Code Status Full code Discussed Condition With Dr Gordillo from cardiology, patient Physician Certification 2 Midnight Certification Type: Admission for Inpatient Services Order for Inpatient Services The services are ordered in accordance with Medicare regulations or non- Medicare payer requirements, as applicable. In the case of services not specified as inpatient-only, they are appropriately provided as inpatient services in accordance with the 2-midnight benchmark. Estimated LOS (days): 2 days is the estimated time the patient will need to remain in the hospital, assuming treatment plan goals are met and no additional complications. Post-Hospital Plan: Not yet determined Problem Qualifiers (1) Dyspnea: Qualified Codes: R06.02 - Shortness of breath (2) Leukocytosis: Qualified Codes: D72.829 - Elevated white blood cell count, unspecified Luís White MD Nov 27, 2017 16:02
[2017-11-27] MEDS: LORazepam 1 MG TAB PO PRN (18:43)
[2017-11-27] MEDS: HEPARIN SODIUM - SQ 10,000 UNITS/ML VIAL SQ SCH (22:00)
[2017-11-28] VITALS (7 sets, daily range): BP systolic 129–162; BP diastolic 72–96; PULSE 61–97; RESP 20–22; TEMP 97.4–98.8; O2SAT 91–96
[2017-11-28] MEDS: HEPARIN SODIUM - SQ 10,000 UNITS/ML VIAL SQ SCH ×3 (00:21→21:11)
[2017-11-28] MEDS: METOPROLOL TARTRATE 25 MG TAB PO SCH ×2 (07:56→21:09)
[2017-11-28] MEDS: amLODIPine BESYLATE 5 MG TAB PO SCH (07:56)
[2017-11-28] MEDS: SODIUM CHLORIDE 0.9% FLUSH 10 ML FLUSH IV FLUSH SCH ×2 (07:56→21:09)
[2017-11-28] MEDS: PRAVASTATIN SOD 40 MG TAB PO SCH (07:56)
[2017-11-28] MEDS: DOCUSATE SODIUM 50 MG/SENNA 8.6 MG TAB PO SCH ×2 (07:57→21:00)
[2017-11-28] MEDS: ASPIRIN EC 81 MG TABEC PO SCH (07:59)
[2017-11-28] MEDS ORDERED: LEVOTHYROXINE SODIUM 150 MCG TAB PO ONE (09:30)
[2017-11-28] MEDS ORDERED: HEPARIN SODIUM - IV 10,000 UNITS/10 ML VIAL ONE (12:14)
[2017-11-28] MEDS ORDERED: NITROGLYCERIN INJ 5 ML ONE (12:14)
[2017-11-28] MEDS ORDERED: VERAPAMIL HCL 5 MG/2 ML VIAL ONE (12:14)
[2017-11-28] MEDS ORDERED: MIDAZOLAM HCL 2 MG/2 ML VIAL ONE (12:14)
--- NOTE | 2017-11-28 13:08 | CATHPROC ---
[employer] HIS Report Study Information Study Number Admission Scheduled Start Study Start [id number] Nov 26 2017 3:51PM 11/27/2017 Nov 28 2017 11:56AM [facility] Cardiac Catheterization Admit Source Facility Department Other [facility] Physician and Clinical Staff Initial Sathish Damon Division Toll Wire Chief Samuel CARCAMO, Maxim Other cathlab, cathlab Recorder Christo Schwarz RCIS(BS) Scrub Misti Mendez,RT(R) Procedures Performed Procedure Location (Site) Vessel Name Coronary Angiograms LCA Left Coronary Coronary Angiograms RCA Right Coronary L Heart Cath Equipment Time Mattress Weaver Description Size Mfg Part Number Used/Scraped TRANSDUCER, TRUWAVE [id number] 12:10 SUÁREZ DELCID * Used W/STOCKCOCK *[id number] *[id number] 12:10 Home Inventory S[pecialists PACK, CCL CUSTOM * Used *[id number] 12:10 Home Inventory S[pecialists SUPPORT, ARTERIAL ADULT 08389 *[id number] Used [id number] 12:48 MEDTRONIC JL 3.5 DXTERITY CATHETER FR 5 Used *[id number] BAND, RADIAL COMPRESSION TR [id number] 12:55 8 [employer] MEDICAL 24CM Used SHORT 24 *[id number] 12:11 8 [employer] MEDICAL SHEATH, FR6.5 PRELUDE 11CM FR 6.5 038ACT Used *[id number] 12:10 8 [employer] MEDICAL WIRE, 3MMJ .035 180CM 180CM Used *[id number] 12:10 8 [employer] MEDICAL WIRE, EXCHANGE 260CM 3MMJ 260CM Used *[id number] 12:10 NAMIC MANIFOLD, 4 PORT * Used *[id number] 12:10 [employer]COMED OMNIPAQUE, 350 MG, 150ML 150ML [id number] Used [id number] 12:10 [employer] MEDICAL BLANKET,WARM AIR CCL * Used *[id number] SHEATH, FR6 TRANSRADIAL RM*[id number] 12:10 Proformative FR 6 Used SLENDER 10CM *[id number] History: Current Medications Medication Dosage/Unit Route Frequency Last Date/Time Taken ASA Beta Daya Statins (any) History: Allergies Allergy Reaction No Known Allergies History: Risk Factors Family History of Hypertension Dyslipidemia Previous ME Previous Heart Failure Premature CAD Yes Yes No No No Prior Valve Prior PCI Prior CABG Surgery No No No Cerebrovascular Peripheral Artery Chronic Lung On Dialysis Diabetes Disease Disease Disease No No No No No History: Symptoms/Diagnosis Selection Items SOB History: Stress Tests Stress or Imaging Studies Performed Yes Standard Exercise Stress Test No Stress Echo No Stress Test SPECT Stress Test SPECT Result Stress Test SPECT Ischemia Risk/Extent Yes Positive Intermediate Stress Test CMR No Cardiac CTA Coronary Calcium Score No No History: Other Current Smoker Packs a Day Years Used Pack Years Yes 1 30 30 Labs Hgb (g/dl) Hct (%) WBC (l/cumm) Platelets (thousands) 11.60-17.00 35.00-51.00 4.00-11.00 150.00-450.00 14.7 42.9 21.6 326 Glucose (mg/dl) BUN (mg/dl) Creatinine (mg/dl) BUN:Creatinine (1:x) 74.00-106.00 7.00-18.00 0.50-1.30 10.00-20.00 96 16 0.9 17.8 Na (meq/l) K (meq/l) 136.00-145.00 3.50-5.10 140 3.4 Troponin I (ng/ml) CPK (u/l) CPK-MB (ng/ML) 0.02-0.05 26.00-308.00 0.50-3.60 0.11 140 2.2 Medication Medication Total Dose (Bolus/Oral) Medication Total Dosage/Unit 1% XYLOCAINE 5 mL FENTANYL 25 mcg RADIAL COCKTAIL 5 mL (Bolus) VERSED 0.5 mg Medications (Bolus/Oral) Medication Time Given Dosage/Unit Administered By Reason FENTANYL 11/28/2017 12:40:18 PM 25 mcg Maxim Baker RN 25 mcg FENTANYL given in lab by Maxim Baker RN in Right Antecubital via Peripheral IV. Ordered by Sathish Nunes 1% XYLOCAINE 11/28/2017 12:40:49 PM 5 mL Sathish Gordillo 5 mL 1% XYLOCAINE given in lab by Sathish Gordillo in Right Radial via Subcutaneous. VERSED 11/28/2017 12:41:07 PM 0.5 mg Maxim Baker RN 0.5 mg VERSED given in lab by Maxim Baker RN in Right Hand via Peripheral IV. Ordered by Hazel Gordillo Ntg 200mcg Verapamil 2.5mg Heparin RADIAL COCKTAIL 11/28/2017 12:42:28 PM 5 mL (Bolus) Maxim Baker RN 2500U 5 mL (Bolus) RADIAL COCKTAIL given in lab by Maxim Baker RN in Right Radial via Radial. Using [Solut ion Name]. Ordered by Sathish Gordillo Reason: Ntg 200mcg Verapamil 2.5mg Heparin 3600U. Initial Case Assessment Cardiovascular HR Rhythm NIBP Chest Pain 71 nsr 155/115 0 Edema Present Skin color Skin None Normal Warm Dry Circulatory - Right Pulses Dorsalis Pedis Femoral Radial 1 1 1 Scale (0,1,2,3,4,d) Circulatory - Left Pulses Dorsalis Pedis Femoral Radial 1 1 Scale (0,1,2,3,4,d) Neurological State Oriented to time-place- Alert Moves all extremities person Respiration - General Respiration Rate SpO2 (%) (B/min) 15 95 Final Case Assessment Cardiovascular HR Rhythm NIBP Chest Pain 71 nsr 155/115 0 Edema Present Skin color Skin None Normal Warm Dry Circulatory - Right Pulses Dorsalis Pedis Femoral Radial 1 1 1 Scale (0,1,2,3,4,d) Circulatory - Left Pulses Dorsalis Pedis Femoral Radial 1 1 Scale (0,1,2,3,4,d) Neurological State Oriented to time-place- Alert Moves all extremities person Respiration - General Respiration Rate SpO2 (%) (B/min) 15 97 Chronological Log Time Study Chronological Log 11:55:44 Patient arrived via Bed. 11:55:45 Patient Name, D.O.B, / Armband Verified By R.N. 11:55:46 Consent signed by the physician and the patient and verified by the [facility] [employer] staff. 11:55:46 Pre-op and post- op instructions given; patient acknowledges understanding of instructions. 11:55:47 Verbal Stimulation=2 Physical Stimulation=2 Airway=2 Respiration=2 TOTAL=8. (0=absent, 1=li mited, 2=present) 11:55:47 Presedation assessment performed by [facility] [employer] RN. 11:55:48 Allens test performed on the right radial and ulnar artery. 11:55:49 Immediate Presedation assesment performed by physician. 11:55:49 Patient has been NPO for More than 6Hrs. 11:55:50 Skin Breakdown-none per patient 11:55:51 Patient Warmer Placed on the Table. 11:55:52 Sofia Prominences Protected 11:55:53 A # 20 IV was noted in the Antecubital (right). Grade = 0 11:55:55 History and physical on the chart or being dictated. Vitals capture started with the following parameters, Patient=Adult, Interval=5 min, Initial Pr rzqrsb=036 mmHg, 12:04:30 Deflation Rate=5 mmHg, Cuff placed on Left Arm 12:05:06 HR=72 bpm, KLRX=711/115 mmhg, SpO2=95 %, Resp=8 B/min, Pain=0, Sybil=10, Lechuga=2 Assessment: Initial Case, HR=71 BPM, Rhythm=nsr, WYTT=169/115 mmhg, Chest Pain=0, Edema=None, Color=Normal, Skin = Warm, Dry Right Pulses: Tera Ped=1, Femoral=1, Radial=1 12:07:45 Left Pulses: Tera Ped=1, Femoral=1 Neurological: State=Alert, Ox3, STARKS Respiration: Resp=15 B/min, SpO2=95 % 12:09:06 Reference ECG taken 12:10:13 HR=71 bpm, CKUS=483/85 mmhg, Resp=16 B/min, Pain=0, Sybil=10, Lechuga=2 12:15:49 HR=66 bpm, HVRC=669/106 mmhg, SpO2=91.0 %, Resp=20 B/min, Pain=0, Sybil=10, Lechuga=2 12:19:22 Right Radial and groin(s) prepped with 2% chlorhexidine, and draped after a 3 min. waiting time. 12:20:15 HR=74 bpm, ACIB=222/118 mmhg, SpO2=95 %, Resp=10 B/min, Pain=0, Sybil=10, Lechuga=2 12:24:20 MD paged 12:25:21 HR=71 bpm, EYSS=833/60 mmhg, SpO2=95 %, Resp=18 B/min, Pain=0, Sybil=10, Lechuga=2 12:26:34 Pressure channel 1 zeroed. 12:31:01 HR=73 bpm, HBSX=479/114 mmhg, SpO2=92.0 %, Resp=16 B/min 12:34:09 MD arrived. 12:34:14 Contrast Scanned 12:34:15 Immediate Presedation assesment performed by physician. 12:35:12 HR=63 bpm, MQUZ=009/103 mmhg, SpO2=93 %, Resp=16 B/min, Pain=0, Sybil=10, Lechuga=2 12:40:12 HR=66 bpm, MLZK=991/102 mmhg, SpO2=95 %, Resp=17 B/min, Pain=0, Sybil=10, Lechuga=2 25 mcg FENTANYL given in lab by Maxim Baker RN in Right Antecubital via Peripheral IV. Ordered by Sathish Gordillo 12:40:18 G. Time Out. Correct patient, correct procedure, correct physician, power injector loaded, or not loaded with contrast with 12:40:41 surgical team present. Time Out Concurred by MD and individual staff in procedure. 12:40:44 Case Start 12:40:44 Verbal Stimulation=2 Physical Stimulation=2 Airway=2 Respiration=2 TOTAL=8. (0=absent, 1=li mited, 2=present) 12:40:49 5 mL 1% XYLOCAINE given in lab by Sathish Gordillo in Right Radial via Subcutaneous. 12:41:07 0.5 mg VERSED given in lab by Maxim Baker RN in Right Hand via Peripheral IV. Ordered by Sathish Michele 12:41:52 Access site was Right Radial Artery. A SHEATH, FR6 TRANSRADIAL SLENDER 10CM FR 6 was advanced into the Radial (right) using the Perc utaneous 12:41:59 technique. 5 mL (Bolus) RADIAL COCKTAIL given in lab by Maxim Baker RN in Right Radial via Radial. Using [Solution Name]. 12:42:28 Ordered by Sathish Gordillo Reason: Ntg 200mcg Verapamil 2.5mg Heparin 3600U. A JR 4.0 INFINITI CATHETER FR 5 was advanced over a wire. OMNIPAQUE, 350 MG, 150ML 150ML was us ed for 12:44:17 injections. Recorded Pressure: LV, HR=70, Condition=Condition 1 12:44:43 (Left Ventricle) LV 133/-1/0 Recorded Pressure: LV, Ao, HR=59, Condition=Condition 1 12:44:59 (Left Ventricle) LV 139/-2/2, (Aorta) Ao 145/99/121 12:45:17 HR=73 bpm, TKPI=859/90 mmhg, SpO2=91.0 %, Resp=13 B/min, Pain=0, Sybil=10, Lechuga=2 Recorded Pressure: Ao, HR=79, Condition=Condition 1 12:45:27 (Aorta) Ao 132/91/109 12:46:53 The RCA was injected and visualized at various angles. OMNIPAQUE, 350 MG, 150ML 150ML used . After removing the current catheter a JL 3.5 DXTERITY CATHETER FR 5 was advanced over a WIRE, E XCHANGE 260CM 12:47:58 3MMJ 260CM. 12:50:12 HR=72 bpm, AOTJ=338/98 mmhg, SpO2=98.0 %, Resp=20 B/min, Pain=0, Sybil=10, Lechuga=2 12:52:38 The LCA was injected and visualized at various angles. OMNIPAQUE, 350 MG, 150ML 150ML used . 12:55:15 HR=77 bpm, TFHQ=469/107 mmhg, SpO2=91.0 %, Resp=20 B/min, Pain=0, Sybil=10, Lechuga=2 12:55:21 Catheter was removed 12:55:23 Case End Assessment: Final Case, HR=71 BPM, Rhythm=nsr, AMXS=164/115 mmhg, Chest Pain=0, Edema=None, Co kenrick=Normal, Skin = Warm, Dry Right Pulses: Tera Ped=1, Femoral=1, Radial=1 12:56:16 Left Pulses: Tera Ped=1, Femoral=1 Neurological: State=Alert, Ox3, STARKS Respiration: Resp=15 B/min, SpO2=97 % 12:56:21 Catheter(s) removed without difficulty Radial Compression Device Used. 12 mLs of air placed in BAND, RADIAL COMPRESSION TR SHORT 24 2 4CM. Affected 12:56:23 hand 95 % O2 saturation. 12:56:34 Sterile dressing applied to site 12:56:36 No case complications noted. 12:56:36 Cine recording checked. 12:56:38 Bedside Report will be given. 12:56:39 Contrast Scanned 12:56:40 Verbal Stimulation=2 Physical Stimulation=2 Airway=2 Respiration=2 TOTAL=8. (0=absent, 1=l imited, 2=present) 12:56:48 A Left Heart Cath was performed. 13:00:40 HR=73 bpm, VXJQ=027/88 mmhg, SpO2=95 %, Resp=16 B/min, Pain=0, Sybil=10, Lechuga=2 13:03:43 Vitals capture stopped. 13:03:44 Patient moved to stretcher End Study - Contrast Media Used In Study Contrast Total Opened (mL) Total Used (mL) Total Wasted (mL) Omnipaque 40 40 0 End Study - Maximum Contrast Load Max Contrast Load (mL) 507.8 End Study - Radiation Exposure Fluoro Time (minutes) 3.8 End Study - Patient Disposition Complications Transferred To Interventional Outcome No [facility] No attempt made
--- NOTE | 2017-11-28 13:36 | MA ---
cc: SATHISH VERDE DO DATE 11/28/2017 PROCEDURE Left heart catheterization, coronary angiogram, moderate sedation 15 minutes. PREPROCEDURE DIAGNOSIS Shortness of breath, abnormal stress test. POSTPROCEDURE DIAGNOSIS Mild coronary artery disease. MEDICATIONS Versed 0.5 mg, fentanyl 25 mcg, nitro 200 mcg, verapamil 2.5 mg, heparin 3600 units. CONTRAST USED 40 cc. FLUOROSCOPY 3.8 minutes. SEDATION Moderate sedation, 15 minutes. ESTIMATED BLOOD LOSS 10 cc. PROCEDURAL SUMMARY Ciera Reeder is a pleasant 47-year-old female who presented to [facility] Emergency Room due to shortness of breath with exertion. She was recommended stress testing and during this she was found to have possible ischemia in the anterior lateral and inferior portions, although the overall test contained artifact and so it was difficult to determine. She was recommended cardiac catheterization. The risks, benefits and alternatives were explained to her and she consented as such. She was brought to the experimental machining lab manager and prepped in the usual sterile fashion. The right radial artery was accessed using a modified Seldinger technique with placement of a 5/6 [place] Slender sheath. This was easily aspirated and flushed. A JR4 was advanced over a J-wire to the ascending aorta and across the aortic valve for measurement of left ventricular pressure. This was pulled back across the aortic valve showing no significant gradient of aortic stenosis. A JR4 was used for selective angiography of the right coronary artery system. This was exchanged out for a JL 3.5 which was used for selective angiography of the left coronary artery system. The JL 3.5 was removed over a J-wire. A radial band was placed over the arteriotomy site for hemostasis. The patient left the experimental machining lab manager cardiovascularly stable. FINDINGS Left Main: Normal size vessel with no significant disease. It trifurcates into an LAD, ramus and circumflex. LAD: Normal size vessel with mild luminal irregularities in the proximal portion, no significant disease. It gives off one major diagonal with no significant disease. Ramus: Normal size vessel with ostial 40% disease. Left Circumflex: Normal size vessel with mild luminal irregularities throughout the proximal to midportion. It gives off one small obtuse marginal. RCA: Normal size vessel. Dominant in nature. Mild tortuosity throughout the proximal portion. No significant disease throughout. LVEDP is 2. IMPRESSION 1. Mild coronary artery disease as above. 2. Shortness of breath with exertion, most likely due to extensive hypertension, LVH and possible hypothyroidism. 3. Hypothyroidism. RECOMMENDATIONS 1. Ms. Reeder appears to have mild coronary artery disease and will continue to be treated medically for this. 2. Overall she needs better blood pressure control. 3. She was found to have hypothyroidism and this will be treated by the primary team. 4. If her blood pressure is stable in the morning, she may be discharged home from a cardiovascular standpoint. Thank you for allowing me to see Ciera Reeder. If there are any questions, please do not hesitate to call. Sathish Verde DO VGP/BT /12:59 PM /1:06 PM
[2017-11-28] MEDS ORDERED: IOHEXOL 350 MG/ML 50 ML BTL (for Cath Lab) OTHER ONE (13:44)
--- NOTE | 2017-11-28 13:58 | HHI.PR ---
Subjective Remarks Denies cp, sob. Still has edema in BL lower extremities. Objective Vitals Vital Signs Date Time Temp Pulse Resp B/P (MAP) Pulse Ox O2 Delivery O2 Flow Rate FiO2 11/28/17 13:17 95 Room Air 11/28/17 08:00 Room Air 11/28/17 08:00 97.5 80 20 147/96 (113) 91 11/28/17 08:00 97 11/28/17 04:00 97.4 89 22 162/90 (114) 95 11/28/17 04:00 61 11/28/17 00:00 98.8 82 21 158/82 (107) 96 11/28/17 00:00 82 11/27/17 20:32 94 Nasal Cannula 2.00 11/27/17 20:00 98.4 85 22 152/88 (109) 96 11/27/17 20:00 82 11/27/17 20:00 Room Air 11/27/17 16:00 98.5 76 18 157/116 (130) 94 I/O 11/27/17 11/27/17 11/27/17 11/28/17 11/28/17 11/28/17 07:00 15:00 23:00 07:00 15:00 23:00 Intake Total 420 ml 360 ml 0 ml Output Total 750 ml Balance 420 ml 360 ml -750 ml Intake Oral 420 ml 360 ml 0 ml Output Urine Total 750 ml # Voids 4 3 # Bowel Movements 0 2 1 Result Diagram: 11/27/17 0505 11/27/17 0505 Imaging Last Impressions Myocardial Perfusion Scan Nuc Med 11/27/17 0000 Signed Impressions: Service Date/Time: Monday, November 27, 2017 13:16 - CONCLUSION: Possible areas of ischemia at the apical anterior and lateral rosa and at the basilar inferior wall. RISK CATEGORY: Low (<1%% Annual Mortality Rate) Alexy Barnes MD Chest X-Ray 11/26/17 1417 Signed Impressions: Service Date/Time: Sunday, November 26, 2017 15:02 - CONCLUSION: Mild linear bibasilar atelectasis. Nancy Picekns MD Foot X-Ray 11/26/17 0000 Signed Impressions: Service Date/Time: Sunday, November 26, 2017 15:04 - CONCLUSION: Soft tissue swelling and no definite fracture for technique. Nancy Pickens MD Objective Remarks GENERAL: This is a well-nourished, well-developed patient, in no apparent distress. SKIN: No rashes, ecchymoses or lesions. Cool and dry, Brittle hair HEAD: Atraumatic. Normocephalic. No temporal or scalp tenderness. EYES: Pupils equal round and reactive. Extraocular motions intact. No scleral icterus. No injection or drainage. ENT: Nose without bleeding, purulent drainage or septal hematoma. Throat without erythema, tonsillar hypertrophy or exudate. Uvula midline. Airway patent. NECK: Trachea midline. No JVD or lymphadenopathy. Supple, nontender, no meningeal signs. CARDIOVASCULAR: Regular rate and rhythm without murmurs, gallops, or rubs. RESPIRATORY: Clear to auscultation. Breath sounds equal bilaterally. No wheezes , rales, or rhonchi. GASTROINTESTINAL: Abdomen soft, non-tender, nondistended. No hepato-splenomegaly , or palpable masses. No guarding. Obese. MUSCULOSKELETAL: Extremities without clubbing, cyanosis, +2 non pitting edema. No joint tenderness, effusion, or edema noted. No calf tenderness. Negative Homans sign bilaterally. NEUROLOGICAL: Awake and alert. Cranial nerves II through XII intact. Motor and sensory grossly within normal limits. Five out of 5 muscle strength in all muscle groups. Normal speech. Medications and IVs Current Medications Medications (Trade) Dose Ordered Sig/Araseli Route Start Time Stop Time Status Last Admin (NS Flush) 2 ml UNSCH PRN IV FLUSH 11/26/17 16:45 (NS Flush) 2 ml BID IV FLUSH 11/26/17 21:00 11/28/17 07:56 (Tylenol) 650 mg Q4H PRN PO 11/26/17 16:45 (Zofran Inj) 4 mg Q6H PRN IVP 11/26/17 16:45 (Restoril) 15 mg HS PRN PO 11/26/17 16:45 (Narcan Inj) 0.4 mg UNSCH PRN IV PUSH 11/26/17 16:45 (Laurence-Colace) 1 tab BID PO 11/26/17 21:00 11/26/17 21:48 (Milk Of Magnesia Liq) 30 ml Q12H PRN PO 11/26/17 16:45 (Senokot) 17.2 mg Q12H PRN PO 11/26/17 16:45 (Dulcolax Supp) 10 mg DAILY PRN RECTAL 11/26/17 16:45 (Lactulose Liq) 30 ml DAILY PRN PO 11/26/17 16:45 (Ativan) 1 mg Q8H PRN PO 11/26/17 19:45 11/27/17 18:43 ([place] 5-325 Mg) 1 tab Q4H PRN PO 11/26/17 19:45 (Morphine Inj) 2 mg Q4H PRN IV PUSH 11/26/17 19:45 (Ecotrin Ec) 81 mg DAILY PO 11/27/17 09:00 11/27/17 09:06 (Pravachol) 40 mg DAILY PO 11/27/17 09:00 11/28/17 07:56 (Lopressor) 25 mg Q12HR PO 11/26/17 21:00 11/28/17 07:56 (Norvasc) 5 mg DAILY PO 11/27/17 12:00 11/28/17 07:56 (Heparin Inj) 5,000 units Q8HR SQ 11/27/17 22:00 11/27/17 22:00 A/P Problem List: (1) Dyspnea ICD Code: R06.00 - Dyspnea, unspecified Status: Acute (2) NSTEMI (non-ST elevated myocardial infarction) ICD Code: I21.4 - Non-ST elevation (NSTEMI) myocardial infarction Status: Acute (3) Bilateral lower extremity edema ICD Code: R60.0 - Localized edema (4) Leukocytosis ICD Code: D72.829 - Elevated white blood cell count, unspecified (5) Malignant essential hypertension ICD Code: I10 - Essential (primary) hypertension Status: Acute (6) Hypokalemia ICD Code: E87.6 - Hypokalemia Status: Acute (7) H/O hyperthyroidism ICD Code: Z86.39 - Personal history of other endocrine, nutritional and metabolic disease (8) Tobacco abuse ICD Code: Z72.0 - Tobacco use Status: Acute (9) Adult myxedema ICD Code: E03.9 - Hypothyroidism, unspecified Status: Acute Plan: 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 Patient is noncompliant with levothyroxine and stopped taking it long time ago. I will start the patient on levothyroxine. The patient should have a recheck TSH in 6 weeks and the dose should be adjusted then. (10) Hypothyroidism (acquired) ICD Code: E03.9 - Hypothyroidism, unspecified Status: Acute Plan: TSH very elevated since patient noncompliant with levothyroxine. I will start the patient on levothyroxine. TSH of be followed up 6 weeks after the patient's discharged. Assessment and Plan (1) Dyspnea Plan: Likely related to malignant hypertension. Check 2-D echo. Cardiology consulted. 1/2 oh with normal EF, mild concentric left ventricular hypertrophy. Dyspnea likely related to hypertensive emergency, myxedema due to hypothyroidism (2) NSTEMI (non-ST elevated myocardial infarction) Plan: EKG reviewed by me showed sinus rhythm with a ventricular rate of [address] segment elevations or depressions. There were nonspecific T-wave changes in anterolateral leads. Cardiology following. Nuclear stress test ordered and it shows possible areas of ischemia at the apical anterior and lateral rosa and at the basilar inferior wall. Discussed the case with Dr. Gordillo from cardiology who recommends nothing by mouth at midnight for cardiac catheter tomorrow. 1/2 catheterization shows mild CAD. Discussed the case with Dr. Gordillo who recommended to discharge the patient in a.m. if stable. (3) Bilateral lower extremity edema Plan: BNP is 9. Congestive heart failure unlikely. Check 2-D echocardiogram. Possibly secondary to long-standing hypertension. I will order bilateral venous Dopplers to rule out DVT. Bilateral lower extremity edema likely secondary to myxedema. (4) Leukocytosis Plan: CXR reviewed by me showed mild linear basilar atelectasis. Check urinalysis. (5) Malignant essential hypertension Plan: Cardiology consulted. Start the patient on amlodipine 5 mg by mouth daily, metoprolol tartrate 25 maintenance by mouth twice a day. Blood pressure is somewhat improved. Continue to monitor vital signs. 1/2 blood pressure much improved, however still slightly elevated. I will increase amlodipine dose to 10 mg by mouth daily. (6) Hypokalemia Plan: Replace and monitor BMP. (7) H/O hyperthyroidism Plan: The patient states she underwent radioactive iodine ablation therapy. However she is currently not on any levothyroxine replacement. When asked she states that she should be on levothyroxine however she stopped taking it because she could not afford it. (8) Tobacco abuse Plan: Consult against him on smoking cessation. Assessment and Plan DVT prophylaxis: SCDs, add heparin subcutaneous. Code Status Full code Discharge Planning Possible DC in a.m. if stable. Problem Qualifiers (1) Dyspnea: Qualified Codes: R06.02 - Shortness of breath (2) Leukocytosis: Qualified Codes: D72.829 - Elevated white blood cell count, unspecified Luís White MD Nov 28, 2017 13:58
--- NOTE | 2017-11-28 14:10 | PD.CARD.PN ---
Subjective Subjective Remarks No events overnight Post-cath today No chest pain/SOB Objective Medications Current Medications Medications (Trade) Dose Ordered Sig/Araseli Route Start Time Stop Time Status Last Admin (NS Flush) 2 ml UNSCH PRN IV FLUSH 11/26/17 16:45 (NS Flush) 2 ml BID IV FLUSH 11/26/17 21:00 11/28/17 07:56 (Tylenol) 650 mg Q4H PRN PO 11/26/17 16:45 (Zofran Inj) 4 mg Q6H PRN IVP 11/26/17 16:45 (Restoril) 15 mg HS PRN PO 11/26/17 16:45 (Narcan Inj) 0.4 mg UNSCH PRN IV PUSH 11/26/17 16:45 (Laurence-Colace) 1 tab BID PO 11/26/17 21:00 11/26/17 21:48 (Milk Of Magnesia Liq) 30 ml Q12H PRN PO 11/26/17 16:45 (Senokot) 17.2 mg Q12H PRN PO 11/26/17 16:45 (Dulcolax Supp) 10 mg DAILY PRN RECTAL 11/26/17 16:45 (Lactulose Liq) 30 ml DAILY PRN PO 11/26/17 16:45 (Ativan) 1 mg Q8H PRN PO 11/26/17 19:45 11/27/17 18:43 ([place] 5-325 Mg) 1 tab Q4H PRN PO 11/26/17 19:45 (Morphine Inj) 2 mg Q4H PRN IV PUSH 11/26/17 19:45 (Ecotrin Ec) 81 mg DAILY PO 11/27/17 09:00 11/27/17 09:06 (Pravachol) 40 mg DAILY PO 11/27/17 09:00 11/28/17 07:56 (Lopressor) 25 mg Q12HR PO 11/26/17 21:00 11/28/17 07:56 (Heparin Inj) 5,000 units Q8HR SQ 11/27/17 22:00 11/27/17 22:00 (Norvasc) 10 mg DAILY PO 11/29/17 09:00 UNV Vital Signs / I&O Vital Signs Date Time Temp Pulse Resp B/P (MAP) Pulse Ox O2 Delivery O2 Flow Rate FiO2 11/28/17 13:17 95 Room Air 11/28/17 08:00 Room Air 11/28/17 08:00 97.5 80 20 147/96 (113) 91 11/28/17 08:00 97 11/28/17 04:00 97.4 89 22 162/90 (114) 95 11/28/17 04:00 61 11/28/17 00:00 98.8 82 21 158/82 (107) 96 11/28/17 00:00 82 11/27/17 20:32 94 Nasal Cannula 2.00 11/27/17 20:00 98.4 85 22 152/88 (109) 96 11/27/17 20:00 82 11/27/17 20:00 Room Air 11/27/17 16:00 98.5 76 18 157/116 (130) 94 I/O 11/27/17 11/27/17 11/27/17 11/28/17 11/28/17 11/28/17 07:00 15:00 23:00 07:00 15:00 23:00 Intake Total 420 ml 360 ml 0 ml Output Total 750 ml Balance 420 ml 360 ml -750 ml Intake Oral 420 ml 360 ml 0 ml Output Urine Total 750 ml # Voids 4 3 2 # Bowel Movements 0 2 1 Physical Exam GENERAL: NAD, AAOx3 SKIN: Warm and dry. HEAD: Atraumatic. Normocephalic. EYES: Pupils equal and round. No scleral icterus. No injection or drainage. ENT: No nasal bleeding or discharge. Mucous membranes pink and moist. NECK: Trachea midline. No JVD. CARDIOVASCULAR: Regular rate and rhythm. RESPIRATORY: No accessory muscle use. Clear to auscultation. Breath sounds equal bilaterally. GASTROINTESTINAL: Abdomen soft, non-tender, nondistended. Hepatic and splenic margins not palpable. MUSCULOSKELETAL: Extremities without clubbing, cyanosis. Non-pitting 1+ edema NEUROLOGICAL: Awake and alert. No obvious cranial nerve deficits. Motor grossly within normal limits. Five out of 5 muscle strength in the arms and legs. Normal speech. PSYCHIATRIC: Appropriate mood and affect; insight and judgment normal. Laboratory Laboratory Tests Test 11/28/17 11:15 Human Chorionic Gonadotropin, Quant LESS THAN 1 MIU/ML Assessment and Plan Problem List: (1) Elevated troponin ICD Codes: R74.8 - Abnormal levels of other serum enzymes (2) LVH (left ventricular hypertrophy) ICD Codes: I51.7 - Cardiomegaly (3) Hypertensive urgency ICD Codes: I16.0 - Hypertensive urgency (4) GUERRERO (dyspnea on exertion) ICD Codes: R06.09 - Other forms of dyspnea (5) CAD (coronary artery disease) ICD Codes: I25.10 - Atherosclerotic heart disease of [place] coronary artery without angina pectoris (6) Hypothyroidism (acquired) ICD Codes: E03.9 - Hypothyroidism, unspecified Status: Acute (7) Adult myxedema ICD Codes: E03.9 - Hypothyroidism, unspecified Status: Acute (8) Tobacco abuse ICD Codes: Z72.0 - Tobacco use Status: Acute Assessment and Plan 1) Mild CAD by cardiac catheterization Con't medical management 2) Blood pressure better controlled Needs to follow up with PCP or Cardiology for senior care blood pressure goals 3) EF 55-60%, mild LVH 4) Hypothyroidism with most likely myxedema 5) Plan for discharge in the morning if stable Sathish Gordillo DO Nov 28, 2017 14:10
[2017-11-28] MEDS: MORPHINE SULFATE 2 MG/ML INJ IV PUSH PRN ×2 (17:10→21:10)
[2017-11-28 20:33] LABS: AUTOMATED NEUTROPHIL # 16.1 TH/MM3 (1.8-7.7); BASOPHIL # 0.1 TH/MM3 (0-0.2); BASOPHIL % 0.4 % (0.0-2.0); EOSINOPHIL # 0.1 TH/MM3 (0-0.4); EOSINOPHIL % 0.7 % (0.0-4.0); HEMATOCRIT 43.3 % (35.0-46.0); HEMOGLOBIN 14.4 GM/DL (11.6-15.3); LYMPH % 12.6 % (9.0-44.0); LYMPHOCYTE # 2.5 TH/MM3 (1.0-4.8); MEAN CELL VOLUME 97.3 FL (80.0-100.0); MEAN CORPUSCULAR HEMOGLOBIN 32.4 PG (27.0-34.0); MEAN CORPUSCULAR HGB CONC 33.3 % (32.0-36.0); MEAN PLATELET VOLUME 8.6 FL (7.0-11.0); MONO % 6.5 % (0.0-8.0); MONOCYTE # 1.3 TH/MM3 (0-0.9); NEUT % 79.8 % (16.0-70.0); PLATELET COUNT 329 TH/MM3 (150-450); RED BLOOD COUNT 4.45 MIL/MM3 (4.00-5.30); RED CELL DISTRIBUTION WIDTH 15.1 % (11.6-17.2); WHITE BLOOD COUNT 20.1 TH/MM3 (4.0-11.0)
[2017-11-28 20:39] LABS: ALBUMIN 4.1 GM/DL (3.4-5.0); ALT (GPT) 21 U/L (10-53); AST (GOT) 18 U/L (15-37); BICARBONATE 25.5 MEQ/L (21.0-32.0); BLOOD UREA NITROGEN 16 MG/DL (7-18); CHLORIDE 105 MEQ/L (98-107); CREATININE 0.98 MG/DL (0.50-1.00); GLOMERULAR FILTRATION RATE 61 ML/MIN (>89); GLUCOSE,RANDOM 97 MG/DL (74-106); SODIUM (NA) 138 MEQ/L (136-145)
[2017-11-28 20:42] LABS: ALKALINE PHOSPHATASE 111 U/L (45-117); TOTAL BILIRUBIN ADULT 0.4 MG/DL (0.2-1.0); TOTAL PROTEIN 8.3 GM/DL (6.4-8.2)
[2017-11-29] VITALS: BP 136/79; PULSE 61; PULSE 67; RESP 22; TEMP 98.4; O2SAT 95
[2017-11-29 04:00] VITALS: BP 152/82; PULSE 68; PULSE 75; RESP 20; TEMP 97.6; O2SAT 95
[2017-11-29] MEDS: HEPARIN SODIUM - SQ 10,000 UNITS/ML VIAL SQ SCH ×2 (06:00→14:11)
[2017-11-29] MEDS: MORPHINE SULFATE 2 MG/ML INJ IV PUSH PRN ×2 (06:24→12:15)
[2017-11-29 06:52] LABS: AUTOMATED NEUTROPHIL # 15.9 TH/MM3 (1.8-7.7); BASOPHIL # 0.1 TH/MM3 (0-0.2); BASOPHIL % 0.7 % (0.0-2.0); EOSINOPHIL # 0.2 TH/MM3 (0-0.4); EOSINOPHIL % 0.8 % (0.0-4.0); HEMOGLOBIN 15.2 GM/DL (11.6-15.3); LYMPH % 10.9 % (9.0-44.0); LYMPHOCYTE # 2.1 TH/MM3 (1.0-4.8); MEAN CELL VOLUME 98.5 FL (80.0-100.0); MEAN CORPUSCULAR HEMOGLOBIN 33.2 PG (27.0-34.0); MEAN CORPUSCULAR HGB CONC 33.7 % (32.0-36.0); MONO % 5.9 % (0.0-8.0); MONOCYTE # 1.2 TH/MM3 (0-0.9); NEUT % 81.7 % (16.0-70.0); PLATELET COUNT 339 TH/MM3 (150-450); RED BLOOD COUNT 4.57 MIL/MM3 (4.00-5.30); RED CELL DISTRIBUTION WIDTH 14.9 % (11.6-17.2); WHITE BLOOD COUNT 19.5 TH/MM3 (4.0-11.0)
[2017-11-29 07:33] LABS: ALBUMIN 4.3 GM/DL (3.4-5.0); ALT (GPT) 21 U/L (10-53); AST (GOT) 18 U/L (15-37); BICARBONATE 26.4 MEQ/L (21.0-32.0); BLOOD UREA NITROGEN 15 MG/DL (7-18); CALCIUM 8.8 MG/DL (8.5-10.1); CHLORIDE 105 MEQ/L (98-107); CREATININE 0.87 MG/DL (0.50-1.00); GLOMERULAR FILTRATION RATE 69 ML/MIN (>89); GLUCOSE,RANDOM 83 MG/DL (74-106); MAGNESIUM 2.6 MG/DL (1.5-2.5); PHOSPHORUS 2.9 MG/DL (2.5-4.9); SODIUM (NA) 140 MEQ/L (136-145)
[2017-11-29 07:35] LABS: ALKALINE PHOSPHATASE 117 U/L (45-117); TOTAL BILIRUBIN ADULT 0.5 MG/DL (0.2-1.0); TOTAL PROTEIN 8.2 GM/DL (6.4-8.2)
[2017-11-29 08:00] VITALS: BP 139/83; PULSE 64; PULSE 72; RESP 20; TEMP 98; O2SAT 95
[2017-11-29] MEDS: SODIUM CHLORIDE 0.9% FLUSH 10 ML FLUSH IV FLUSH SCH (08:29)
[2017-11-29] MEDS: PRAVASTATIN SOD 40 MG TAB PO SCH (08:29)
[2017-11-29] MEDS: ASPIRIN EC 81 MG TABEC PO SCH (08:29)
[2017-11-29] MEDS: METOPROLOL TARTRATE 25 MG TAB PO SCH (08:29)
[2017-11-29] MEDS: DOCUSATE SODIUM 50 MG/SENNA 8.6 MG TAB PO SCH (08:30)
[2017-11-29 11:42] LABS: BACTERIA, URINE OCC /hpf; BILIRUBIN, URINE NEG (NEG); BLOOD, URINE TRACE (NEG); GLUCOSE,URINE NEG (NEG); KETONE, URINE NEG (NEG); MUCUS URINE FEW /lpf (OCC); NITRITE,URINE NEG (NEG); SQUAMOUS EPITHELIAL CELL URINE 2 /hpf (0-5); URINE COLOR YELLOW (YELLW/STRAW); URINE LEUKOCYTE ESTERASE NEG (NEG)
[2017-11-29 12:00] VITALS: BP 132/87; PULSE 80; PULSE 81; RESP 19; TEMP 98; O2SAT 96
--- NOTE | 2017-11-29 14:58 | PD.CARD.PN ---
Subjective Subjective Remarks No events overnight No chest pain/SOB Objective Medications Current Medications Medications (Trade) Dose Ordered Sig/Araseli Route Start Time Stop Time Status Last Admin (NS Flush) 2 ml UNSCH PRN IV FLUSH 11/26/17 16:45 (NS Flush) 2 ml BID IV FLUSH 11/26/17 21:00 11/29/17 08:29 (Tylenol) 650 mg Q4H PRN PO 11/26/17 16:45 (Zofran Inj) 4 mg Q6H PRN IVP 11/26/17 16:45 (Restoril) 15 mg HS PRN PO 11/26/17 16:45 (Narcan Inj) 0.4 mg UNSCH PRN IV PUSH 11/26/17 16:45 (Laurence-Colace) 1 tab BID PO 11/26/17 21:00 11/26/17 21:48 (Milk Of Magnesia Liq) 30 ml Q12H PRN PO 11/26/17 16:45 (Senokot) 17.2 mg Q12H PRN PO 11/26/17 16:45 (Dulcolax Supp) 10 mg DAILY PRN RECTAL 11/26/17 16:45 (Lactulose Liq) 30 ml DAILY PRN PO 11/26/17 16:45 (Ativan) 1 mg Q8H PRN PO 11/26/17 19:45 11/27/17 18:43 ([place] 5-325 Mg) 1 tab Q4H PRN PO 11/26/17 19:45 11/29/17 02:19 (Morphine Inj) 2 mg Q4H PRN IV PUSH 11/26/17 19:45 11/29/17 12:15 (Ecotrin Ec) 81 mg DAILY PO 11/27/17 09:00 11/29/17 08:29 (Pravachol) 40 mg DAILY PO 11/27/17 09:00 11/29/17 08:29 (Lopressor) 25 mg Q12HR PO 11/26/17 21:00 11/29/17 08:29 (Heparin Inj) 5,000 units Q8HR SQ 11/27/17 22:00 11/29/17 14:11 (Norvasc) 10 mg DAILY PO 11/29/17 09:00 11/29/17 08:30 Vital Signs / I&O Vital Signs Date Time Temp Pulse Resp B/P (MAP) Pulse Ox O2 Delivery O2 Flow Rate FiO2 11/29/17 14:08 Room Air 11/29/17 12:00 81 11/29/17 12:00 98.0 80 19 132/87 (102) 96 11/29/17 11:21 Room Air 11/29/17 08:35 Room Air 11/29/17 08:00 64 11/29/17 08:00 98.0 72 20 139/83 (101) 95 11/29/17 04:00 97.6 68 20 152/82 (105) 95 11/29/17 04:00 75 11/29/17 00:00 61 11/29/17 00:00 98.4 67 22 136/79 (98) 95 11/28/17 20:00 80 11/28/17 20:00 Room Air 11/28/17 19:00 98.0 75 22 133/94 (107) 96 11/28/17 18:00 98.2 74 20 146/91 (109) 93 I/O 11/28/17 11/28/17 11/28/17 11/29/17 11/29/17 11/29/17 07:00 15:00 23:00 07:00 15:00 23:00 Intake Total 0 ml 720 ml Output Total 750 ml Balance -750 ml 720 ml Intake Oral 0 ml 720 ml Output Urine Total 750 ml # Voids 2 1 4 # Bowel Movements 1 Physical Exam GENERAL: NAD, AAOx3 SKIN: Warm and dry. HEAD: Atraumatic. Normocephalic. EYES: Pupils equal and round. No scleral icterus. No injection or drainage. ENT: No nasal bleeding or discharge. Mucous membranes pink and moist. NECK: Trachea midline. No JVD. CARDIOVASCULAR: Regular rate and rhythm. RESPIRATORY: No accessory muscle use. Clear to auscultation. Breath sounds equal bilaterally. GASTROINTESTINAL: Abdomen soft, non-tender, nondistended. Hepatic and splenic margins not palpable. MUSCULOSKELETAL: Extremities without clubbing, cyanosis. Right radial no hematoma, neurovascularly intact distally NEUROLOGICAL: Awake and alert. No obvious cranial nerve deficits. Motor grossly within normal limits. Five out of 5 muscle strength in the arms and legs. Normal speech. PSYCHIATRIC: Appropriate mood and affect; insight and judgment normal. Laboratory Laboratory Tests Test 11/28/17 20:02 11/29/17 05:17 11/29/17 11:15 White Blood Count 20.1 TH/MM3 19.5 TH/MM3 Red Blood Count 4.45 MIL/MM3 4.57 MIL/MM3 Hemoglobin 14.4 GM/DL 15.2 GM/DL Hematocrit 43.3 % 45.0 % Mean Corpuscular Volume 97.3 FL 98.5 FL Mean Corpuscular Hemoglobin 32.4 PG 33.2 PG Mean Corpuscular Hemoglobin Concent 33.3 % 33.7 % Red Cell Distribution Width 15.1 % 14.9 % Platelet Count 329 TH/MM3 339 TH/MM3 Mean Platelet Volume 8.6 FL 9.0 FL Neutrophils (%) (Auto) 79.8 % 81.7 % Lymphocytes (%) (Auto) 12.6 % 10.9 % Monocytes (%) (Auto) 6.5 % 5.9 % Eosinophils (%) (Auto) 0.7 % 0.8 % Basophils (%) (Auto) 0.4 % 0.7 % Neutrophils # (Auto) 16.1 TH/MM3 15.9 TH/MM3 Lymphocytes # (Auto) 2.5 TH/MM3 2.1 TH/MM3 Monocytes # (Auto) 1.3 TH/MM3 1.2 TH/MM3 Eosinophils # (Auto) 0.1 TH/MM3 0.2 TH/MM3 Basophils # (Auto) 0.1 TH/MM3 0.1 TH/MM3 CBC Comment DIFF FINAL DIFF FINAL Differential Comment Blood Urea Nitrogen 16 MG/DL 15 MG/DL Creatinine 0.98 MG/DL 0.87 MG/DL Random Glucose 97 MG/DL 83 MG/DL Total Protein 8.3 GM/DL 8.2 GM/DL Albumin 4.1 GM/DL 4.3 GM/DL Calcium Level 9.0 MG/DL 8.8 MG/DL Alkaline Phosphatase 111 U/L 117 U/L Aspartate Amino Transf (AST/SGOT) 18 U/L 18 U/L Alanine Aminotransferase (ALT/SGPT) 21 U/L 21 U/L Total Bilirubin 0.4 MG/DL 0.5 MG/DL Sodium Level 138 MEQ/L 140 MEQ/L Potassium Level 3.7 MEQ/L 3.4 MEQ/L Chloride Level 105 MEQ/L 105 MEQ/L Carbon Dioxide Level 25.5 MEQ/L 26.4 MEQ/L Anion Gap 8 MEQ/L 9 MEQ/L Estimat Glomerular Filtration Rate 61 ML/MIN 69 ML/MIN Phosphorus Level 2.9 MG/DL Magnesium Level 2.6 MG/DL Urine Color YELLOW Urine Turbidity HAZY Urine pH 6.0 Urine Specific [place] 1.031 Urine Protein TRACE mg/dL Urine Glucose (UA) NEG mg/dL Urine Ketones NEG mg/dL Urine Occult Blood TRACE Urine Nitrite NEG Urine Bilirubin NEG Urine Urobilinogen LESS THAN 2.0 MG/DL Urine Leukocyte Esterase NEG Urine RBC 3 /hpf Urine WBC 1 /hpf Urine Squamous Epithelial Cells 2 /hpf Urine Bacteria OCC /hpf Urine Mucus FEW /lpf Microscopic Urinalysis Comment CULT NOT INDICATED Assessment and Plan Problem List: (1) Elevated troponin ICD Codes: R74.8 - Abnormal levels of other serum enzymes (2) LVH (left ventricular hypertrophy) ICD Codes: I51.7 - Cardiomegaly (3) Hypertensive urgency ICD Codes: I16.0 - Hypertensive urgency (4) GUERRERO (dyspnea on exertion) ICD Codes: R06.09 - Other forms of dyspnea (5) CAD (coronary artery disease) ICD Codes: I25.10 - Atherosclerotic heart disease of [place] coronary artery without angina pectoris (6) Hypothyroidism (acquired) ICD Codes: E03.9 - Hypothyroidism, unspecified Status: Acute (7) Adult myxedema ICD Codes: E03.9 - Hypothyroidism, unspecified Status: Acute (8) Tobacco abuse ICD Codes: Z72.0 - Tobacco use Status: Acute Assessment and Plan 1) Mild CAD by cardiac catheterization Con't medical management 2) Blood pressure better controlled 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
[2017-11-29] MEDS ORDERED: POTASSIUM CHLORIDE 10 MEQ CONTROLLED RELEASE TAB PO ONE (15:00)
[2017-11-29] MEDS ORDERED: ECASA81 PO (15:10)
[2017-11-29] MEDS ORDERED: AMLO10 PO (15:10)
[2017-11-29] MEDS ORDERED: METO25TA3 PO (15:10)
[2017-11-29] MEDS ORDERED: PRAV40TA PO (15:10)
[2017-11-29] MEDS ORDERED: LEVO.15 PO (15:13)
[2017-11-29] MEDS ORDERED: LEVA500T33 PO (15:13)
--- NOTE | 2017-11-29 15:13 | HHI.DCPOC ---
Discharge Care Plan Diagnosis: (1) Hypertensive urgency (2) Elevated troponin (3) LVH (left ventricular hypertrophy) (4) GUERRERO (dyspnea on exertion) (5) CAD (coronary artery disease) (6) Hypothyroidism (acquired) (7) Adult myxedema (8) H/O hyperthyroidism (9) Tobacco abuse (10) Hypokalemia (11) Bilateral lower extremity edema (12) Leukocytosis (13) Malignant essential hypertension (14) NSTEMI (non-ST elevated myocardial infarction) Goals to Promote Your Health * To prevent worsening of your condition and complications * To maintain your health at the optimal level Directions to Meet Your Goals Take your medications as prescribed Follow your dietary instruction Follow activity as directed Keep your appointments as scheduled Take your immunizations and boosters as scheduled If your symptoms worsen call your PCP, if no PCP go to Urgent Care Center or Emergency Room Smoking is Dangerous to Your Health. Avoid second hand smoke Call the 24-hour hour crisis hotline for domestic abuse at Luís White MD Nov 29, 2017 15:13
[2017-11-29] MEDS ORDERED: LEVOFLOXACIN 500 MG TAB PO ONE (15:15)
[2017-11-29] MEDS ORDERED: LEVOTHYROXINE SODIUM 150 MCG TAB PO SCH (15:15)
--- NOTE | 2017-11-29 15:16 | HHI.DS ---
Discharge Summary Admission Date Nov 26, 2017 at 15:51 Discharge Date: Nov 29, 2017 Admitting Diagnosis NSTEMI, exertional dyspnea, lower extremity edema (1) Dyspnea ICD Code: R06.00 - Dyspnea, unspecified Status: Acute (2) NSTEMI (non-ST elevated myocardial infarction) ICD Code: I21.4 - Non-ST elevation (NSTEMI) myocardial infarction Status: Acute (3) Bilateral lower extremity edema ICD Code: R60.0 - Localized edema (4) Leukocytosis ICD Code: D72.829 - Elevated white blood cell count, unspecified (5) Malignant essential hypertension ICD Code: I10 - Essential (primary) hypertension Status: Acute (6) Hypokalemia ICD Code: E87.6 - Hypokalemia Status: Acute (7) H/O hyperthyroidism ICD Code: Z86.39 - Personal history of other endocrine, nutritional and metabolic disease (8) Tobacco abuse ICD Code: Z72.0 - Tobacco use Status: Acute (9) Adult myxedema ICD Code: E03.9 - Hypothyroidism, unspecified Status: Acute (10) Hypothyroidism (acquired) ICD Code: E03.9 - Hypothyroidism, unspecified Status: Acute Brief History - From Admission This is a 47-year-old female with past medical history of hyperthyroidism status post radiation treatment who presented to [facility] emergency department at [place] complaining of bilateral lower extremity swelling and progressive shortness of breath. The patient noticed the swelling over the past few weeks which has current significant worst over the past week. Patient also complains of dizziness exertion which have been present over the past few months. The patient denies orthopnea or paroxysmal nocturnal dyspnea. Occasionally she states has a with sensation in her chest which last a few minutes and then goes away. It does not seem to be related to exertion. The patient otherwise denies any chest pain, fevers, chills, dysuria, abdominal pain , nausea, vomiting, diaphoresis. Patient however does state that she has not been taking Levothyroxine which she stopped taking a long time ago but she could not afford the medication. When asked patient admitted to weight gain, constipation, brittle hair. CBC/BMP: 11/29/17 0517 11/29/17 0517 Significant Findings Laboratory Tests Test 11/26/17 22:36 11/27/17 05:05 11/28/17 11:15 11/28/17 20:02 Troponin I 0.10 NG/ML (0.02-0.05) 0.11 NG/ML (0.02-0.05) White Blood Count 21.6 TH/MM3 (4.0-11.0) 20.1 TH/MM3 (4.0-11.0) Neutrophils (%) (Auto) 82.0 % (16.0-70.0) 79.8 % (16.0-70.0) Neutrophils # (Auto) 17.7 TH/MM3 (1.8-7.7) 16.1 TH/MM3 (1.8-7.7) Monocytes # (Auto) 1.1 TH/MM3 (0-0.9) 1.3 TH/MM3 (0-0.9) Potassium Level 3.4 MEQ/L (3.5-5.1) Estimat Glomerular Filtration Rate 64 ML/MIN (>89) 61 ML/MIN (>89) Thyroid Stimulating Hormone 3rd Gen 34.600 uIU/ML (0.358-3.740) Total Protein 8.3 GM/DL (6.4-8.2) Test 11/29/17 05:17 11/29/17 11:15 White Blood Count 19.5 TH/MM3 (4.0-11.0) Neutrophils (%) (Auto) 81.7 % (16.0-70.0) Neutrophils # (Auto) 15.9 TH/MM3 (1.8-7.7) Monocytes # (Auto) 1.2 TH/MM3 (0-0.9) Magnesium Level 2.6 MG/DL (1.5-2.5) Potassium Level 3.4 MEQ/L (3.5-5.1) Estimat Glomerular Filtration Rate 69 ML/MIN (>89) Urine Turbidity HAZY (CLEAR) Urine Occult Blood TRACE (NEG) Urine Bacteria OCC /hpf (NONE) Urine Mucus FEW /lpf (OCC) Imaging Last Impressions Myocardial Perfusion Scan Nuc Med 11/27/17 0000 Signed Impressions: Service Date/Time: Monday, November 27, 2017 13:16 - CONCLUSION: Possible areas of ischemia at the apical anterior and lateral rosa and at the basilar inferior wall. RISK CATEGORY: Low (<1%% Annual Mortality Rate) Alexy Barnes MD Chest X-Ray 11/26/17 1417 Signed Impressions: Service Date/Time: Sunday, November 26, 2017 15:02 - CONCLUSION: Mild linear bibasilar atelectasis. Nancy Pickens MD Foot X-Ray 11/26/17 0000 Signed Impressions: Service Date/Time: Sunday, November 26, 2017 15:04 - CONCLUSION: Soft tissue swelling and no definite fracture for technique. Nancy Pickens MD PE at Discharge GENERAL: This is a well-nourished, well-developed patient, in no apparent distress. SKIN: No rashes, ecchymoses or lesions. Cool and dry, Brittle hair HEAD: Atraumatic. Normocephalic. No temporal or scalp tenderness. EYES: Pupils equal round and reactive. Extraocular motions intact. No scleral icterus. No injection or drainage. ENT: Nose without bleeding, purulent drainage or septal hematoma. Throat without erythema, tonsillar hypertrophy or exudate. Uvula midline. Airway patent. NECK: Trachea midline. No JVD or lymphadenopathy. Supple, nontender, no meningeal signs. CARDIOVASCULAR: Regular rate and rhythm without murmurs, gallops, or rubs. RESPIRATORY: Clear to auscultation. Breath sounds equal bilaterally. No wheezes , rales, or rhonchi. GASTROINTESTINAL: Abdomen soft, non-tender, nondistended. No hepato-splenomegaly , or palpable masses. No guarding. Obese. MUSCULOSKELETAL: Extremities without clubbing, cyanosis, +2 non pitting edema. No joint tenderness, effusion, or edema noted. No calf tenderness. Negative Homans sign bilaterally. NEUROLOGICAL: Awake and alert. Cranial nerves II through XII intact. Motor and sensory grossly within normal limits. Five out of 5 muscle strength in all muscle groups. Normal speech. Pt Condition on Discharge: Stable Discharge Disposition: Discharge Home Discharge Time: > 30 minutes Discharge Instructions DIET: Follow Instructions for: Heart Healthy Diet Activities you can perform: Regular-No Restrictions Activities to Avoid: Strenuous Activity Follow up Referrals: PCP Follow-up - 2 Weeks New Medications: Amlodipine (Norvasc) 10 Mg Tab 10 MG PO DAILY for Blood Pressure Management, #[address] (Aspirin DR) 81 Mg Tabdr 81 MG PO DAILY for cad, #31 TAB Levofloxacin (Levaquin) 500 Mg Tablet 500 MG PO DAILY for leukocytosis, #5 TAB Levothyroxine (Synthroid) 150 Mcg Tab 150 MCG PO DAILY@0600 for Thyroid, #31 TAB Metoprolol Tartrate (Metoprolol Tartrate) 25 Mg Tab 25 MG PO Q12HR for Blood Pressure Management, #62 TAB Pravastatin (Pravachol) 40 Mg Tab 40 MG PO DAILY for Cholesterol Management, #31 TAB Luís White MD Nov 29, 2017 15:16
[2017-11-30] MEDS ORDERED: LEVOFLOXACIN 500 MG TAB PO SCH (09:00)
== END 2017-11-29 17:18 | disposition home or self-care (01) | DRG 287 ==
LOC: PHED 13:43 → PHEDA 15:51 → N04A 17:42
PROVIDERS: ADMIT Family Medicine; ATTEND Family Medicine
PROC: B2111ZZ Fluoroscopy of Multiple Coronary Arteries using Low Osmolar Contrast (ICD-10-PCS; 2017-11-28)
PROC: 4A023N7 Measurement of Cardiac Sampling and Pressure, Left Heart, Percutaneous Approach (ICD-10-PCS; principal; 2017-11-28 12:30)
DX: I16.1 Hypertensive emergency (principal); I11.9 Hypertensive heart disease without heart failure; J98.11 Atelectasis; D72.829 Elevated white blood cell count, unspecified; R60.0 Localized edema; E87.6 Hypokalemia; E66.9 Obesity, unspecified; K42.9 Umbilical hernia without obstruction or gangrene; T38.1X6A Underdosing of thyroid hormones and substitutes, initial encounter; E89.0 Postprocedural hypothyroidism; I25.10 Atherosclerotic heart disease of native coronary artery without angina pectoris; R74.8 Abnormal levels of other serum enzymes; F17.210 Nicotine dependence, cigarettes, uncomplicated; F12.90 Cannabis use, unspecified, uncomplicated; Z68.38 Body mass index [BMI] 38.0-38.9, adult; Z91.120 Patient's intentional underdosing of medication regimen due to financial hardship; Z91.19 Patient's noncompliance with other medical treatment and regimen; Z92.3 Personal history of irradiation
CPT/HCPCS: 71010; 73620; 78452; 80048; 80053; 81001; 82550; 82552; 83735; 83880; 84100; 84443; 84484; 84702; 85025; 93005; 93017; 93306; 93458; 96374; 99152; 99153; A9502; C1769; C1893; J1644; J1940; J2250; J2270; J2785; J3010; Q9967